=== PATIENT | female | born 1995 | race Caucasian/White ===

== ENCOUNTER 2016-07-02 20:16 | Emergency (ER) | payer MEDICAID ==
[2016-07-02 21:23] VITALS: BP 121/71
== END 2016-07-03 01:15 | disposition left against medical advice (07) ==
LOC: ER 20:16
DX: Z53.21 Procedure and treatment not carried out due to patient leaving prior to being seen by health care provider (principal)

== ENCOUNTER 2016-07-07 17:16 | Emergency (ER) | payer MEDICAID ==
--- NOTE | 2016-07-07 17:41 | ER Document Report ---
ED Medical Screen (RME) - General Chief Complaint: Abdominal Pain Stated Complaint: ABDOMINAL PAIN,BACK PAIN Time seen by provider: 17:39 Mode of Arrival: Ambulatory Information source: Patient Notes: 21-year-old again with twins complaining of upper uterine pain since today at 10:00. No vaginal bleeding. c/0 of nausea. Yellow vaginal discharge after urination. No urinary symptoms. known Rh-. TRAVEL OUTSIDE OF THE [place] IN LAST 30 DAYS: No - Related Data Allergies/Adverse Reactions: doxycycline [Doxycycline] Allergy (Verified 06/06/15 14:42) Penicillins Allergy (Verified 06/06/15 14:42) Past Medical History Pulmonary Medical History: Reports: Hx Asthma Neurological Medical History: Reports: Hx Migraine Musculoskeltal Medical History: Reports Hx Musculoskeletal Trauma - Toxic Psychiatric Medical History: Reports: Hx Anxiety, Hx Depression - Immunizations Immunizations up to date: Yes Hx Diphtheria, Pertussis, Tetanus Vaccination: Yes Physical Exam - Vital signs Vitals: Temp Pulse Resp BP Pulse Ox 97.9 F 102 H 20 122/64 99 07/07/16 17:34 07/07/16 17:34 07/07/16 17:34 07/07/16 17:34 07/07/16 17:34 Course - Vital Signs Vital signs: Temp Pulse Resp BP Pulse Ox 97.9 F 102 H 20 122/64 99 07/07/16 17:34 07/07/16 17:34 07/07/16 17:34 07/07/16 17:34 07/07/16 17:34
[2016-07-07 19:00] LABS: ABSOLUTE EOSINOPHILS # (AUTO) 0.1 10^3/uL (0.0-0.6); ABSOLUTE LYMPHOCYTES (AUTO) 2.3 10^3/uL (0.5-4.7); ABSOLUTE MONOCYTES (AUTO) 0.6 10^3/uL (0.1-1.4); BASOPHILS % (AUTO) 0.1 % (0-2); HEMATOCRIT 33.8 % (36.0-47.0); HGB HCT DIFFERENCE 2.2; MEAN CORPUSCULAR HEMOGLOBIN 30.5 pg (27.0-33.4); MEAN CORPUSCULAR HGB CONC 35.5 g/dL (32.0-36.0); MEAN CORPUSCULAR VOLUME 86 fl (80-97); MONOCYTES % (AUTO) 7.5 % (3-13); RED BLOOD COUNT 3.93 10^6/uL (3.72-5.28); RED CELL DISTRIBUTION WIDTH 13.1 % (11.5-14.0); SEGMENTED NEUTROPHILS % (AUTO) 62.4 % (42-78)
[2016-07-07 19:17] LABS: AMORPHOUS SEDIMENT,URINE TRACE /HPF; APPEARANCE,URINE SLIGHTLY-CLOUDY; BILIRUBIN,URINE NEGATIVE (NEGATIVE); GLUCOSE, URINE NEGATIVE (NEGATIVE); KETONES,URINE NEGATIVE (NEGATIVE); LEUKOCYTE ESTERASE,URINE NEGATIVE (NEGATIVE); NITRITE,URINE NEGATIVE (NEGATIVE); PROTEIN,URINE NEGATIVE (NEGATIVE); UROBILINOGEN,URINE NEGATIVE mg/dL (<2.0)
[2016-07-07 19:27] LABS: ALANINE AMINOTRANSFERASE 30 U/L (9-52); ALBUMIN 3.6 g/dL (3.5-5.0); ALKALINE PHOSPHATASE 61 U/L (38-126); ANION GAP 12 (5-19); ASPARTATE AMINO TRANSFERASE 20 U/L (14-36); BILIRUBIN,TOTAL 0.4 mg/dL (0.2-1.3); BLOOD UREA NITROGEN 6 mg/dL (7-20); CALCIUM 9.2 mg/dL (8.4-10.2); CARBON DIOXIDE 23 mmol/L (22-30); CHLORIDE 104 mmol/L (98-107); CREATININE RESULT 0.47 mg/dL (0.52-1.25); GLUCOSE 82 mg/dL (75-110); LIPASE 34.5 U/L (23-300); POTASSIUM 3.9 mmol/L (3.6-5.0); SODIUM 139.3 mmol/L (137-145); TOTAL PROTEIN 6.6 g/dL (6.3-8.2)
--- NOTE | 2016-07-07 21:02 | ER Document Report ---
ED GI/ - General Mode of Arrival: Ambulatory Information source: Patient TRAVEL OUTSIDE OF THE [place] IN LAST 30 DAYS: No - HPI Patient complains to provider of: Abdominal pain Onset: This morning Context: Sexual history: Active Associated symptoms: Other - see above <JEANETH MCCLELLAN - Last Filed: 07/07/16 20:57> <WILLIAM PRITCHARD - Last Filed: 07/07/16 21:37> - General Chief Complaint: Abdominal Pain Stated Complaint: ABDOMINAL PAIN,BACK PAIN Notes: 21 year old female (12 weeks; high risk with fraternal twins) presents to the ED complaining of tightening abdominal pain that began this morning at 10 :00. [facility] all findings were normal. Patient called her OB complaining of having "contractions" every 4 minutes and stating that the pain radiated to her left flank and was told to come to the ED. Patient describes the "contractions" as if her abdomen was becoming "rock hard" and then relaxing. Patient claims these "contractions" were present from 10:00 to 14:00. Patient denies diarrhea, burning with urination, vaginal bleeding, or vaginal pain. Patient states she last had intercourse 3 nights ago. (JEANETH MCCLELLAN) - Related Data Allergies/Adverse Reactions: doxycycline [Doxycycline] Allergy (Verified 06/06/15 14:42) Penicillins Allergy (Verified 06/06/15 14:42) Past Medical History - General Information source: Patient - Social History Smoking Status: Unknown if Ever Smoked Family History: Reviewed & Not Pertinent Patient has suicidal ideation: No Patient has homicidal ideation: No Pulmonary Medical History: Reports: Hx Asthma Neurological Medical History: Reports: Hx Migraine Musculoskeltal Medical History: Reports Hx Musculoskeletal Trauma - Toxic Psychiatric Medical History: Reports: Hx Anxiety, Hx Depression Surgical Hx: Negative - Immunizations Immunizations up to date: Yes Hx Diphtheria, Pertussis, Tetanus Vaccination: Yes <JEANETH MCCLELLAN - Last Filed: 07/07/16 20:57> Review of Systems - Review of Systems Constitutional: No symptoms reported EENT: No symptoms reported Cardiovascular: No symptoms reported Respiratory: No symptoms reported Gastrointestinal: See HPI, Abdominal pain. denies: Diarrhea Genitourinary: No symptoms reported, Flank pain - left flank. denies: Burning Female Genitourinary: See HPI, - 12 weeks. denies: Vaginal bleeding, Painful intercourse Musculoskeletal: No symptoms reported Skin: No symptoms reported Hematologic/Lymphatic: No symptoms reported Neurological/Psychological: No symptoms reported -: Yes All other systems reviewed and negative <JEANETH MCCLELLNA - Last Filed: 07/07/16 20:57> Physical Exam - Vital signs Interpretation: Normal - General General appearance: Alert In distress: None - HEENT Head: Normocephalic, Atraumatic Eyes: Normal Extraocular movements intact: Yes Pupils: PERRL - Respiratory Respiratory status: No respiratory distress Breath sounds: Normal - Cardiovascular Rhythm: Regular Heart sounds: Normal auscultation - Abdominal Inspection: Normal Distension: No distension Bowel sounds: Normal Tenderness: Nontender - Back Back: Normal, Nontender - Extremities General upper extremity: Normal inspection, Normal ROM General lower extremity: Normal inspection, Normal ROM - Neurological Neuro grossly intact: Yes Cognition: Normal Orientation: AAOx4 Agenda Coma Scale Eye Opening: Spontaneous Agenda Coma Scale Verbal: Oriented Casper Coma Scale Motor: Obeys Commands Casper Coma Scale Total: 15 Speech: Normal - Psychological Associated symptoms: Normal affect, Normal mood - Skin Skin Temperature: Warm Skin Moisture: Dry Skin Color: Normal <JEANETH MCCLELLAN - Last Filed: 07/07/16 20:57> <WILLIAM PRITCHARD - Last Filed: 07/07/16 21:37> - Vital signs Vitals: Temp Pulse Resp BP Pulse Ox 97.9 F 102 H 20 122/64 99 07/07/16 17:34 07/07/16 17:34 07/07/16 17:34 07/07/16 17:34 07/07/16 17:34 (JEANETH MCCLELLAN) (WILLIAM PRITCHARD) Course - Laboratory Result Diagrams: 07/07/16 18:44 07/07/16 18:44 <JEANETH MCCLELLAN - Last Filed: 07/07/16 20:57> - Laboratory Result Diagrams: 07/07/16 18:44 07/07/16 18:44 <WILLIAM PRITCHARD - Last Filed: 07/07/16 21:37> - Re-evaluation Re-evalutation: 07/07/16 21:33 I personally performed the services described in the documentation, reviewed and edited the documentation which was dictated to my scribe in my presence, and it accurately records my words and actions. Patient is 12 weeks with twins reports what she felt were contractions prior to arrival. This is her second history of previous miscarriage no history of labor or full-term delivery of children. Has a high school drafting teacher/GYN physician in [place] called them told them she felt like she was having a tightening contractions and they told her to go to the emergency department. Initially seen and evaluated out in [facility] ultrasound ordered initially went to see the patient was in the ultrasound machine which came back much time I evaluated her she denied any pain cramping eating pelvic pain or discharge. She denies any history of trauma. She has abdominal pain flank pain urinary symptoms syncope near syncope chest pain or shortness of breath. Urinalysis is negative for infection she is well-appearing nontoxic in no acute distress blood pressure is stable she is afebrile show abdominal examinations no guarding rebound or rigidity ultrasound shows intrauterine twin approximately 12 weeks with no associated abnormality. She discharged home plenty of fluids rest follow-up with [facility] physician one day and discussed reasons for ED return sooner (WILLIAM PRITCHARD) - Vital Signs Vital signs: Temp Pulse Resp BP Pulse Ox 97.9 F 102 H 18 122/64 99 07/07/16 17:34 07/07/16 17:34 07/07/16 18:35 07/07/16 17:34 07/07/16 17:34 (JEANETH MCCLELLAN) (WILLIAM PRITCHARD) - Laboratory Laboratory results interpreted by ga: 07/07/16 07/07/16 18:44 18:44 Hct 33.8 L BUN 6 L Creatinine 0.47 L Beta HCG, Quant 10917.00 H (JEANETH MCCLELLAN) (WILLIAM PRITCHARD) Discharge <JEANETH MCCLELLAN - Last Filed: 07/07/16 20:57> <WILLIAM PRITCHARD - Last Filed: 07/07/16 21:37> - Discharge Clinical Impression: abdominal pain in Condition: Stable Disposition: HOME, SELF-CARE Instructions: Abdominal Pain ([facility]) Additional Instructions: Abdominal Pain in There are many causes of abdominal pain. Pain can mean a serious problem requiring surgery (such as appendicitis). It can also be an innocent problem that goes away on its own (such as a viral infection). Often, time must pass to determine the cause of pain. The physician does not feel that hospitalization is necessary, at present. Things may change within the next 24 hours. Call the doctor or come back for re- examination if any problems occur, such as: (1) Pain that becomes more severe, steady, or becomes concentrated in one specific area. Also, pain that is more severe with movement or coughing. (2) Vomiting that persists or becomes more frequent. (3) Blood in the vomitus, urine, or bowel movements. Blood in the stool may have a tarry or black appearance. (4) Shaking chills or fever greater than 100 degrees F. (5) The abdomen becomes more distended or swollen. (6) Bowel movements cease. (7) Failure to improve as expected. Follow-up with your [facility] physician tomorrow return for increasing worsening or new symptoms Referrals: SANDRA KIM MD [Primary Care Provider] - Follow up tomorrow Scribe Documentation - Scribe Written by Compa:: Compa Gomez, 07/07/2016 21:11 acting as scribe for :: Javier <JEANETH MCCLELLAN - Last Filed: 07/07/16 20:57>
[2016-07-07 22:27] VITALS: BP 111/65
== END 2016-07-07 22:10 | disposition home or self-care (01) ==
LOC: ER 17:16
DX: O26.91 Pregnancy related conditions, unspecified, first trimester (principal); R10.9 Unspecified abdominal pain; M54.9 Dorsalgia, unspecified; O30.001 Twin pregnancy, unspecified number of placenta and unspecified number of amniotic sacs, first trimester; Z88.0 Allergy status to penicillin
CPT/HCPCS: 36415; 76801; 76802; 80053; 81001; 83690; 84702; 85025; 87086; 87088; 87186; 99284

== ENCOUNTER 2016-08-03 12:55 | Emergency (ER) | payer MEDICAID ==
--- NOTE | 2016-08-03 13:30 | ER Document Report ---
Addendum entered and electronically signed by IRINA MORELOS NP 08/03/16 13:38 : Course - Re-evaluation Re-evalutation: 08/03/16 13:[address] Rivera who agrees with plan for ultrasound imaging - Vital Signs Vital signs: Temp Pulse Resp BP Pulse Ox 97.9 F 114 H 16 110/63 98 08/03/16 13:30 08/03/16 13:30 08/03/16 13:30 08/03/16 13:30 08/03/16 13:30 Original Note: ED Medical Screen (RME) - General Stated Complaint: ABDOMINAL PAIN Mode of Arrival: Ambulatory Information source: Patient Notes: Patient complains of lower pelvic pressure. Patient does report urinary frequency. Patient is currently 17 weeks with twin gestation patient is . Patient does report some vaginal discharge but no vaginal bleeding. No movement since last night. Patient was treated for UTI 07/15/2016. Patient does complain of low back pain as well. hx: Asthma, psoriasis I have greeted and performed a rapid initial assessment of this patient. A comprehensive ED assessment and evaluation of the patient, analysis of test results and completion of the medical decision making process will be conducted by additional ED providers. TRAVEL OUTSIDE OF THE [place] IN LAST 30 DAYS: No - Related Data Allergies/Adverse Reactions: doxycycline [Doxycycline] Allergy (Verified 06/06/15 14:42) Penicillins Allergy (Verified 06/06/15 14:42) Past Medical History Pulmonary Medical History: Reports: Hx Asthma Neurological Medical History: Reports: Hx Migraine Musculoskeltal Medical History: Reports Hx Musculoskeletal Trauma - Toxic Psychiatric Medical History: Reports: Hx Anxiety, Hx Depression - Immunizations Immunizations up to date: Yes Hx Diphtheria, Pertussis, Tetanus Vaccination: Yes Physical Exam - Abdominal Tenderness: Tender - Lower pelvic
[2016-08-03 14:16] LABS: ABSOLUTE EOSINOPHILS # (AUTO) 0.1 10^3/uL (0.0-0.6); ABSOLUTE LYMPHOCYTES (AUTO) 2.3 10^3/uL (0.5-4.7); ABSOLUTE MONOCYTES (AUTO) 0.7 10^3/uL (0.1-1.4); ABSOLUTE NEUT (AUTO) 7.6 10^3/uL (1.7-8.2); BASOPHILS % (AUTO) 0.1 % (0-2); EOSINOPHILS % (AUTO) 1.2 % (0-6); HEMATOCRIT 34.4 % (36.0-47.0); HEMOGLOBIN 11.7 g/dL (12.0-15.5); HGB HCT DIFFERENCE 0.7; LYMPHOCYTES % (AUTO) 21.4 % (13-45); MEAN CORPUSCULAR HGB CONC 34.1 g/dL (32.0-36.0); MEAN CORPUSCULAR VOLUME 88 fl (80-97); MONOCYTES % (AUTO) 6.5 % (3-13); RED BLOOD COUNT 3.91 10^6/uL (3.72-5.28); RED CELL DISTRIBUTION WIDTH 13.7 % (11.5-14.0); SEGMENTED NEUTROPHILS % (AUTO) 70.8 % (42-78); WHITE BLOOD COUNT 10.8 10^3/uL (4.0-10.5)
[2016-08-03] MEDS ORDERED: CEFTRIAXONE RTU 1 GM/D5W 50 ML IV ONE (14:28)
[2016-08-03 14:30] LABS: AMORPHOUS SEDIMENT,URINE 1+ /HPF; APPEARANCE,URINE TURBID; BILIRUBIN,URINE NEGATIVE (NEGATIVE); GLUCOSE, URINE 50 mg/dL (NEGATIVE); KETONES,URINE NEGATIVE (NEGATIVE); LEUKOCYTE ESTERASE,URINE NEGATIVE (NEGATIVE); NITRITE,URINE NEGATIVE (NEGATIVE); PROTEIN,URINE 30 mg/dL (NEGATIVE); URINE SPECIFIC GRAVITY 1.023
[2016-08-03 14:33] LABS: ALANINE AMINOTRANSFERASE 28 U/L (9-52); ALBUMIN 3.4 g/dL (3.5-5.0); ALKALINE PHOSPHATASE 72 U/L (38-126); ANION GAP 10 (5-19); ASPARTATE AMINO TRANSFERASE 17 U/L (14-36); BILIRUBIN,TOTAL 0.5 mg/dL (0.2-1.3); BLOOD UREA NITROGEN 7 mg/dL (7-20); CALCIUM 9.5 mg/dL (8.4-10.2); CARBON DIOXIDE 24 mmol/L (22-30); CHLORIDE 104 mmol/L (98-107); CREATININE RESULT 0.53 mg/dL (0.52-1.25); GLUCOSE 136 mg/dL (75-110); TOTAL PROTEIN 6.7 g/dL (6.3-8.2)
--- NOTE | 2016-08-03 14:35 | ER Document Report ---
ED GI/ - General Chief Complaint: Lower Abdominal Pain Stated Complaint: ABDOMINAL PAIN Mode of Arrival: Ambulatory Information source: Patient Notes: 21-year-old female who is 17 weeks with twin gestation who is a presents today with some persistent lower abdominal "burning sensation when I urinate". Patient was here around July 07 and had a urinary tract infection with a culture showing Klebsiella pneumonia. She was initially started on Macrobid but this was changed secondary to culture results. She states she was placed on Bactrim but stopped the medication after 2 days secondary to "rash". She denies any vaginal bleeding, vomiting, fevers, and currently denies any pain. She states it is intermittent, worse with urination. I had a long discussion with the patient regarding or allergy to penicillins. Patient states when she was little she got bit by ants and they treated the and bite with penicillin and this caused the rash to get worse. She denies any need for epinephrine. She then states around 3 years ago she was diagnosed with strep throat and was started on amoxicillin. She again denies any need for epinephrine and states that this turn into scarlet fever. TRAVEL OUTSIDE OF THE [place] IN LAST 30 DAYS: No - HPI Patient complains to provider of: Other - See above Onset: Other - See above Timing/Duration: Gradual Quality of pain: Pressure Severity at maximum: Moderate Severity in ED: None Pain Level: Denies Location: Suprapubic Vaginal bleeding (Compared to normal period): None - Related Data Allergies/Adverse Reactions: doxycycline [Doxycycline] Allergy (Verified 08/03/16 13:31) Penicillins Allergy (Verified 08/03/16 13:31) Past Medical History - General Information source: Patient - Social History Smoking Status: Current Some Day Smoker Cigarette use (# per day): No Chew tobacco use (# tins/day): No Smoking Education Provided: No Frequency of alcohol use: None Drug Abuse: None Family History: Reviewed & Not Pertinent Patient has suicidal ideation: No Patient has homicidal ideation: No Pulmonary Medical History: Reports: Hx Asthma Neurological Medical History: Reports: Hx Migraine Renal/ Medical History: Denies: Hx Peritoneal Dialysis Musculoskeltal Medical History: Reports Hx Musculoskeletal Trauma - Toxic Psychiatric Medical History: Reports: Hx Anxiety, Hx Depression - Immunizations Immunizations up to date: Yes Hx Diphtheria, Pertussis, Tetanus Vaccination: Yes Review of Systems - Review of Systems Constitutional: denies: Fever EENT: denies: Eye discharge, Nose discharge Cardiovascular: denies: Chest pain, Palpitations Respiratory: denies: Short of breath Gastrointestinal: denies: Vomiting Genitourinary: Burning, Dysuria, Frequency, Flank pain Musculoskeletal: denies: Leg swelling Skin: Other - no hives. denies: Rash Neurological/Psychological: Other - no slurred speech -: Yes All other systems reviewed and negative Physical Exam - Vital signs Vitals: Temp Pulse Resp BP Pulse Ox 97.9 F 114 H 16 110/63 98 08/03/16 13:30 08/03/16 13:30 08/03/16 13:30 08/03/16 13:30 08/03/16 13:30 Notes: Reviewed vital signs and nursing note as charted by RN. CONSTITUTIONAL: Alert and oriented and responds appropriately to questions. Well -appearing; well-nourished HEAD: Normocephalic; atraumatic CARD: Regular rate and rhythm; no murmurs, no clicks, no rubs, no gallops; symmetric distal pulses RESP: Normal chest excursion without splinting or tachypnea; breath sounds clear and equal bilaterally; no wheezes, no rhonchi, no rales ABD/GI: Normal bowel sounds; soft, no tenderness to deep palpation in all 4 quadrants of the abdomen, no rebound, no guarding; consistent with dates BACK: The back appears normal and is non-tender to palpation, there is no CVA tenderness EXT: Normal ROM in all joints; non-tender to palpation; no cyanosis, no effusions, no edema SKIN: Normal color for age and race; warm; dry; good turgor; capillary refill < 2 seconds; no acute lesions noted NEURO: Moves all extremities equally; Motor and sensory function intact PSYCH: The patient's mood and manner are appropriate. Grooming and personal hygiene are appropriate. Course - Re-evaluation Re-evalutation: 08/03/16 14:32 Given the culture results from the urinary tract infection showing indeterminate resistance to Macrobid, I understand why they changed the antibiotics. Given the rash secondary to Bactrim, the patient's status , the uncertain allergy to penicillins, I will give the patient is shot of Rocephin on the monitor. The patient has no adverse reaction, we will start the patient on a cephalosporin given the patient's previous sensitivities. 08/03/16 15:41 Labs as recorded. Urine culture has been sent. Possibly partially treated urinary tract infection. Patient denies any pain currently. No current trouble with antibiotics. 08/03/16 17:33 Labs and urinalysis and ultrasound as recorded. Urine culture has been sent. Patient had no reaction to the Rocephin. We will provide Omnicef with strict return precautions and follow-up with the [facility]. 08/03/16 17:39 Patient still denies any pain. No vomiting. Patient has had no fevers. Heart rate is now 86. Blood pressure is stable. Patient does have some look is in the urine with a blood glucose of 136. Urine culture has been sent. I have called and spoken directly to Dr. Kahn of [facility]. She states that would like the patient to follow-up in [facility] clinic on Thursday. Patient is pleased with this decision. - Vital Signs Vital signs: Temp Pulse Resp BP Pulse Ox 97.9 F 114 H 16 110/63 98 08/03/16 13:30 08/03/16 13:30 08/03/16 13:30 08/03/16 13:30 08/03/16 13:30 - Laboratory Result Diagrams: 08/03/16 13:50 08/03/16 13:50 Laboratory results interpreted by me: 08/03/16 08/03/16 08/03/16 13:50 13:50 13:50 WBC 10.8 H Hgb 11.7 L Hct 34.4 L Glucose 136 H Albumin 3.4 L Urine Protein 30 H Urine Glucose (UA) 50 H Urine Urobilinogen 4.0 H Discharge - Discharge Clinical Impression: Pelvic pain UTI (urinary tract infection) Qualifiers: Urinary tract infection type: acute cystitis Condition: Good Disposition: HOME, SELF-CARE Additional Instructions: Come back immediately with any return of abdominal pain or cramping, back pain or cramping, any change in location or quality of pain, fevers or vomiting, or any other acute problems. Please make sure that you follow-up with your [facility] on Thursday as we have helped expedite for you by calling on Thursday. Prescriptions: Cefdinir [Omnicef 300 mg Capsule] 1 cap PO BID #20 capsule Referrals: ARLENE CORNELIUS, [Primary Care Provider] - Follow up as needed
[2016-08-03] MEDS ORDERED: NORMAL SALINE 1000 ML 1,000 ML IV ONE (17:52)
[2016-08-03 20:09] VITALS: BP 101/60
== END 2016-08-03 19:50 | disposition home or self-care (01) ==
LOC: ER 12:55
DX: O23.12 Infections of bladder in pregnancy, second trimester (principal); N30.00 Acute cystitis without hematuria; R10.2 Pelvic and perineal pain; O30.002 Twin pregnancy, unspecified number of placenta and unspecified number of amniotic sacs, second trimester; O99.332 Smoking (tobacco) complicating pregnancy, second trimester; Z3A.17 17 weeks gestation of pregnancy; Z88.0 Allergy status to penicillin
CPT/HCPCS: 99284; 96365; 36415; 87086; 85025; 80053; 81001; 76805; 76810; J7030; J0696

== ENCOUNTER 2016-09-01 16:01 | Outpatient (CLI) | payer MEDICAID ==
[2016-09-01 16:47] LABS: AMNISURE (ROM) NEGATIVE (NEGATIVE)
[2016-09-01 16:48] LABS: APPEARANCE,URINE CLEAR; BILIRUBIN,URINE NEGATIVE (NEGATIVE); GLUCOSE, URINE 150 mg/dL (NEGATIVE); KETONES,URINE NEGATIVE (NEGATIVE); LEUKOCYTE ESTERASE,URINE NEGATIVE (NEGATIVE); NITRITE,URINE NEGATIVE (NEGATIVE); PROTEIN,URINE NEGATIVE (NEGATIVE); URINE SPECIFIC GRAVITY 1.006; UROBILINOGEN,URINE NEGATIVE mg/dL (<2.0)
[2016-09-01 17:10] LABS: URINE BARBITURATES SCREEN NEGATIVE; URINE METHADONE SCREEN NEGATIVE; URINE OPIATES LOW NEGATIVE; URINE PHENCYCLIDINE SCREEN NEGATIVE
== END 2016-09-01 17:53 | disposition home or self-care (01) ==
LOC: LC 16:01
PROVIDERS: ATTEND Student in an Organized Health Care Education/Training Program
PROC: 4A1HXCZ Monitoring of Products of Conception, Cardiac Rate, External Approach (ICD-10-PCS; principal; 2016-09-01)
DX: Z36 Encounter for antenatal screening of mother (principal)
CPT/HCPCS: 59899; 84112; 81001; 80307; Q0114

== ENCOUNTER 2016-10-22 12:35 | Outpatient (CLI) | payer MEDICAID ==
[2016-10-22 13:26] LABS: APPEARANCE,URINE SLIGHTLY-CLOUDY; BILIRUBIN,URINE NEGATIVE (NEGATIVE); GLUCOSE, URINE NEGATIVE (NEGATIVE); KETONES,URINE TRACE mg/dL (NEGATIVE); LEUKOCYTE ESTERASE,URINE TRACE (NEGATIVE); NITRITE,URINE NEGATIVE (NEGATIVE); PROTEIN,URINE NEGATIVE (NEGATIVE); URINE SPECIFIC GRAVITY 1.011; UROBILINOGEN,URINE NEGATIVE mg/dL (<2.0)
[2016-10-22 13:45] LABS: URINE BARBITURATES SCREEN NEGATIVE; URINE METHADONE SCREEN NEGATIVE; URINE OPIATES LOW NEGATIVE; URINE PHENCYCLIDINE SCREEN NEGATIVE
== END 2016-10-22 14:15 | disposition home or self-care (01) ==
LOC: LC 12:35
PROVIDERS: ATTEND Obstetrics & Gynecology
PROC: 4A1HXCZ Monitoring of Products of Conception, Cardiac Rate, External Approach (ICD-10-PCS; principal; 2016-10-22)
DX: Z34.92 Encounter for supervision of normal pregnancy, unspecified, second trimester (principal); Z36 Encounter for antenatal screening of mother; Z3A.27 27 weeks gestation of pregnancy
CPT/HCPCS: 80307; 81001

== ENCOUNTER 2016-10-25 22:14 | Outpatient (CLI) | payer MEDICAID ==
[2016-10-25 22:57] LABS: AMORPHOUS SEDIMENT,URINE TRACE /HPF; APPEARANCE,URINE SLIGHTLY-CLOUDY; BILIRUBIN,URINE NEGATIVE (NEGATIVE); GLUCOSE, URINE NEGATIVE (NEGATIVE); KETONES,URINE NEGATIVE (NEGATIVE); LEUKOCYTE ESTERASE,URINE TRACE (NEGATIVE); NITRITE,URINE NEGATIVE (NEGATIVE); PROTEIN,URINE NEGATIVE (NEGATIVE); URINE SPECIFIC GRAVITY 1.004; UROBILINOGEN,URINE NEGATIVE mg/dL (<2.0)
[2016-10-25 23:19] LABS: URINE BARBITURATES SCREEN NEGATIVE; URINE METHADONE SCREEN NEGATIVE; URINE OPIATES LOW NEGATIVE; URINE PHENCYCLIDINE SCREEN NEGATIVE
[2016-10-25] MEDS ORDERED: ACETAMINOPHEN 325 MG TABLET ONE (23:41)
[2016-10-25] MEDS ORDERED: ACETAMINOPHEN 325 MG TABLET PO ONE (23:46)
[2016-10-26 00:19] LABS: AMNISURE (ROM) NEGATIVE (NEGATIVE)
== END 2016-10-26 00:41 | disposition home or self-care (01) ==
LOC: LC 22:14
PROVIDERS: ATTEND Specialist
PROC: 4A1HXCZ Monitoring of Products of Conception, Cardiac Rate, External Approach (ICD-10-PCS; principal; 2016-10-25)
DX: Z34.93 Encounter for supervision of normal pregnancy, unspecified, third trimester (principal); Z36 Encounter for antenatal screening of mother; Z3A.28 28 weeks gestation of pregnancy
CPT/HCPCS: 59899; 84112; 81001; 80307; J3490

== ENCOUNTER 2016-11-11 17:20 | Outpatient (CLI) | payer MEDICAID ==
[2016-11-11 18:49] LABS: APPEARANCE,URINE CLOUDY; BILIRUBIN,URINE NEGATIVE (NEGATIVE); CALCIUM OXALATE CRYSTALS,URINE MANY /HPF; GLUCOSE, URINE NEGATIVE (NEGATIVE); KETONES,URINE NEGATIVE (NEGATIVE); LEUKOCYTE ESTERASE,URINE LARGE (NEGATIVE); NITRITE,URINE NEGATIVE (NEGATIVE); PROTEIN,URINE 30 mg/dL (NEGATIVE); URINE SPECIFIC GRAVITY 1.019; UROBILINOGEN,URINE NEGATIVE mg/dL (<2.0)
[2016-11-11 19:04] LABS: URINE BARBITURATES SCREEN NEGATIVE; URINE METHADONE SCREEN NEGATIVE; URINE OPIATES LOW NEGATIVE; URINE PHENCYCLIDINE SCREEN NEGATIVE
--- NOTE | 2016-11-11 20:03 | Non Stress Test Report ---
Non Stress Test Datetime Report Generated by CPN: 11/11/2016 20:03 DEMOGRAPHIC Test Number: 1 EGA NST: 30.4 INDICATION Indication for Study: Ordered by Provider VITAL SIGNS Temperature - NST: 98.0 Pulse - NST: 92 RESP - NST: 14 NBPSYS NST: 122 NBPDIA NST: 71 MONITORING Monitor Explained: Monitor Explained; Test Explained; Patient Verbalized Understanding Time on Monitor: 11/11/2016 17:37 Time off Monitor: 11/11/2016 19:42 NST Duration: 125 NST INTERVENTIONS NST Interventions: PO Hydration; IV Fluids Physician Notified NST: P Dasilva CNM BABY A: [id number] BABY A Movement : Present Contraction Frequency : irritability FHR Baseline : 135 Accelerations : 15X15 Decelerations : None Variability : Moderate 6-25bpm NST Review: Meets Criteria for Reactive NST NST Review and Verified By : Dione Otero RN NST Results: Reactive BABY B Movement: Present FHR Baseline: 140 Accelerations: 15X15 Decelerations: None Variability: Moderate 6-25bpm NST Review: Meets Criteria for Reactive NST NST Reviewed And Verified By: Dione Otero, RN NST Results: Reactive NST REPORT Report Trigger: Send Report
== END 2016-11-11 20:00 | disposition home or self-care (01) ==
LOC: LC 17:20
PROVIDERS: ATTEND Obstetrics & Gynecology
PROC: 4A1HXCZ Monitoring of Products of Conception, Cardiac Rate, External Approach (ICD-10-PCS; principal; 2016-11-11)
DX: O30.003 Twin pregnancy, unspecified number of placenta and unspecified number of amniotic sacs, third trimester (principal); Z3A.30 30 weeks gestation of pregnancy
CPT/HCPCS: 59025; 80307; 81001

== ENCOUNTER 2016-11-14 23:12 | Outpatient (CLI) | payer MEDICAID ==
[2016-11-14 23:39] LABS: APPEARANCE,URINE SLIGHTLY-CLOUDY; BILIRUBIN,URINE NEGATIVE (NEGATIVE); GLUCOSE, URINE NEGATIVE (NEGATIVE); KETONES,URINE TRACE mg/dL (NEGATIVE); LEUKOCYTE ESTERASE,URINE TRACE (NEGATIVE); NITRITE,URINE NEGATIVE (NEGATIVE); PROTEIN,URINE NEGATIVE (NEGATIVE); UROBILINOGEN,URINE NEGATIVE mg/dL (<2.0)
[2016-11-14 23:58] LABS: URINE BARBITURATES SCREEN NEGATIVE; URINE METHADONE SCREEN NEGATIVE; URINE OPIATES LOW NEGATIVE; URINE PHENCYCLIDINE SCREEN NEGATIVE
--- NOTE | 2016-12-05 04:11 | Non Stress Test Report ---
Non Stress Test Datetime Report Generated by CPN: 12/05/2016 04:11 DEMOGRAPHIC EGA NST: 34.0 INDICATION Indication for Study: Other Indication for Study (NST) Other: LC URINE RESULTS Urine Protein, NST: Negative Urine Ketones - NST: Negative Urine Glucose - NST: Negative Urine Blood - NST: Negative MONITORING Monitor Explained: Monitor Explained; Test Explained; Patient Verbalized Understanding; Other Time on Monitor: 12/05/2016 02:01 Time off Monitor: 12/05/2016 03:56 NST Duration: 115 NST INTERVENTIONS NST Interventions: IV Fluids; Other NST Interventions Other: Terbutaline 0.25 mg SQ BABY A: [id number] BABY A Movement : Present Contraction Frequency : 0 FHR Baseline : 120 Accelerations : 15X15 Decelerations : Variable Variability : Moderate 6-25bpm NST Review: Meets Criteria for Reactive NST NST Review and Verified By : K Brianda RN NST Results: Reactive BABY B Movement: Present FHR Baseline: 125 Accelerations: 15X15 Decelerations: None Variability: Moderate 6-25bpm NST Results: Reactive NST REPORT Report Trigger: Send Report
== END 2016-11-15 00:35 | disposition home or self-care (01) ==
LOC: LC 23:12
PROVIDERS: ATTEND Obstetrics & Gynecology
PROC: 4A1HXCZ Monitoring of Products of Conception, Cardiac Rate, External Approach (ICD-10-PCS; principal; 2016-11-14)
DX: O47.03 False labor before 37 completed weeks of gestation, third trimester (principal); Z3A.31 31 weeks gestation of pregnancy
CPT/HCPCS: 80307; 81001

== ENCOUNTER 2016-11-23 14:36 | Emergency (ER) | payer MEDICAID ==
[2016-11-23 14:45] VITALS: BP 144/84
--- NOTE | 2016-11-23 15:10 | ER Document Report ---
ED Oral Problem - General Chief Complaint: Toothache Stated Complaint: TOOTH PAIN Time Seen by Provider: 11/23/16 14:55 Mode of Arrival: Ambulatory Information source: Patient Notes: Female presents to ED for complaint of dental pain to the #19. She is 32 weeks with twins and states that no benefits will touch her at this time. TRAVEL OUTSIDE OF THE [place] IN LAST 30 DAYS: No - HPI Patient complains to provider of: Toothache Onset: Last week Onset: Gradual Quality of pain: Pressure, Throbbing Severity: Severe Pain Level: 5 Associated symptoms: Toothache Worsened by: Cold Similar symptoms previously: Yes Recently seen / treated by doctor/dentist: Yes Past Medical History - General Information source: Patient - Social History Smoking Status: Never Smoker Cigarette use (# per day): No Chew tobacco use (# tins/day): No Smoking Education Provided: No Frequency of alcohol use: None Drug Abuse: None Lives with: Family Family History: Reviewed & Not Pertinent - Past Medical History Cardiac Medical History: Reports: None Pulmonary Medical History: Reports: None EENT Medical History: Reports: None Neurological Medical History: Reports: None Endocrine Medical History: Reports: None Renal/ Medical History: Reports: None Malignancy Medical History: Reports: None GI Medical History: Reports: None Musculoskeltal Medical History: Reports None Skin Medical History: Reports None Psychiatric Medical History: Reports: None Traumatic Medical History: Reports: None Infectious Medical History: Reports: None Surgical Hx: Negative Past Surgical History: Reports: None Review of Systems - Review of Systems Constitutional: No symptoms reported EENT: Dental problem Cardiovascular: No symptoms reported Respiratory: No symptoms reported Gastrointestinal: No symptoms reported Genitourinary: No symptoms reported Female Genitourinary: No symptoms reported Musculoskeletal: No symptoms reported Skin: No symptoms reported Hematologic/Lymphatic: No symptoms reported Neurological/Psychological: No symptoms reported Physical Exam - Vital signs Vitals: Temp Pulse Resp BP Pulse Ox 98 F 91 16 144/84 H 99 11/23/16 14:43 11/23/16 14:43 11/23/16 14:43 11/23/16 14:43 11/23/16 14:43 Interpretation: Normal - General General appearance: Appears well, Alert - HEENT Head: Normocephalic, Atraumatic Eyes: Normal Pupils: PERRL Ears: Normal External canal: Normal Tympanic membrane: Normal Sinus: Normal Nasal: Normal, Other Mouth/Lips: Caries Mucous membranes: Normal Teeth diagram: 1 - Swollen gums surrounding the tooth #19 with a cavity noted on the tooth. Very tender to touch. - Respiratory Respiratory status: No respiratory distress Chest status: Nontender Breath sounds: Normal Chest palpation: Normal - Cardiovascular Rhythm: Regular Heart sounds: Normal auscultation Murmur: No - Abdominal Inspection: Gravid female Distension: No distension Bowel sounds: Normal Tenderness: Nontender Organomegaly: No organomegaly - Back Back: Normal, Nontender - Extremities General upper extremity: Normal inspection, Nontender, Normal color, Normal ROM , Normal temperature General lower extremity: Normal inspection, Nontender, Normal color, Normal ROM , Normal temperature, Normal weight bearing. No: Joe's sign - Neurological Neuro grossly intact: Yes Cognition: Normal Orientation: AAOx4 [place] Coma Scale Eye Opening: Spontaneous [place] Coma Scale Verbal: Oriented [place] Coma Scale Motor: Obeys Commands [place] Coma Scale Total: 15 Speech: Normal Motor strength normal: LUE, RUE, LLE, RLE Sensory: Normal - Psychological Associated symptoms: Normal affect, Normal mood - Skin Skin Temperature: Warm Skin Moisture: Dry Skin Color: Normal Course - Re-evaluation Re-evalutation: 11/23/16 17:05 Dr. [facility] concerning this young lady's pain with her toothache. He stated it was okay to give her Percocet even though she was 32 weeks . - Vital Signs Vital signs: Temp Pulse Resp BP Pulse Ox 98 F 91 16 144/84 H 99 11/23/16 14:43 11/23/16 14:43 11/23/16 14:43 11/23/16 14:43 11/23/16 14:43 Discharge - Discharge Clinical Impression: Pain due to dental caries Condition: Stable Disposition: HOME, SELF-CARE Additional Instructions: TOOTHACHE: Your pain is due to dental decay. The tooth must be repaired in order for you to feel better. You will, therefore, be referred to a dentist. We do not have dentists on the staff at [facility]. Severe swelling or drainage around a tooth usually means a dental abscess. This also requires evaluation and treatment by the dentist, but antibiotics may be prescribed while awaiting dental treatment. You should be rechecked immediately if you develop major swelling of the face, increasing pain, a lump in the jaw or gums, headache, difficulty swallowing, or fever. ORAL NARCOTIC MEDICATION: You have been given a prescription for pain control. This medication is a narcotic. It's best taken with food, as nausea can result if taken on an empty stomach. Don't operate machinery or drive within six hours of taking this medication. Do not combine this medicine with alcohol, or with any medication which can cause sedation (such as cold tablets or sleeping pills) unless you get permission from the physician. Narcotics tend to cause constipation. If possible, drink plenty of fluids and eat a diet high in fiber and fruits. Please be aware that prescription narcotics also have the potential for abuse. People become addicted to these medications because of the general sense of wellbeing that they induce. This feeling along with a significant reduction in tension, anxiety, and aggression provides a stimulating seductive quality to these drugs. Once your pain is under control, we encourage you to discard your unused narcotics. CLINDAMYCIN: You have been given a prescription for the antibiotic clindamycin. It is often prescribed for infections in the mouth, such as dental infections or abscesses, and for skin infections due to MRSA. It's important that you take all the medication, unless instructed otherwise by your physician. Failure to complete the entire course can result in relapse of your condition. Common side effects of antibiotics include nausea, intestinal cramping, or diarrhea. Women may develop vaginal yeast infections, and babies can get yeast (thrush) in the mouth following the use of antibiotics. Contact your physician if you develop significant side effects from this medication. Allergy to this antibiotic can result in hives, wheezing, faintness, or itching. If symptoms of allergy occur, stop the medication and call the doctor. FOLLOW-UP CARE: You have been referred for follow-up care to the dentists listed below. Call the dentists office for an appointment as you were instructed or within the next two days. If you experience worsening or a significant change in your symptoms, notify the physician immediately or return to the Emergency Department at any time for re-evaluation. [facility] [address] Ritesh mornings, by appointment [facility] [address] [place] [address] [facility] [place] [address] [facility] [address] [facility] [address] [facility] [email or web address] [address] [place] [address] Thursday- 8:00am to 5:00 pm Will see patients from other [facility]. Charges based on income and family size and accepts Medicare, Medicaid, and Insurances Will pull molars [facility] Student [facility] [address] Hours of Operation 8:00 am - 4:30 pm weekdays The following dental offices accept Medicaid: [facility] Dr. Gaston Dr. Alba Dr. [place] Dr. Austin Kristofer Wevaer Lutsavage, and Ethel oral surgery Dr. Shah ([place]) Dr. He ([place]) [facility] Drs. Baron and Efrain ([facility]) Dr. Velasco ([facility]) [facility] Dr. Matt ([place]) Drs. Adkins and ([place]) Medicaid Care Line Prescriptions: Clindamycin HCl [Cleocin HCl] 150 mg PO Q6 7 Days Oxycodone HCl/Acetaminophen [Percocet 5-325 mg Tablet] 1 tab PO TIDP PRN #15 tab PRN Reason: Forms: Elevated Blood Pressure
== END 2016-11-23 15:15 | disposition home or self-care (01) ==
LOC: ER 14:36 → MERGE 14:36 → ER 15:15
DX: O30.003 Twin pregnancy, unspecified number of placenta and unspecified number of amniotic sacs, third trimester (principal); K02.9 Dental caries, unspecified; K08.89 Other specified disorders of teeth and supporting structures; Z3A.32 32 weeks gestation of pregnancy
CPT/HCPCS: 99282

== ENCOUNTER → 2016-12-01 | Outpatient (CLI) | payer MEDICAID ==
[2016-12-01 11:37] LABS: HEMATOCRIT 31.6 % (36.0-47.0); HEMOGLOBIN 10.4 g/dL (12.0-15.5); HGB HCT DIFFERENCE -0.4; MEAN CORPUSCULAR HEMOGLOBIN 27.7 pg (27.0-33.4); MEAN CORPUSCULAR HGB CONC 32.9 g/dL (32.0-36.0); MEAN CORPUSCULAR VOLUME 84 fl (80-97); RED BLOOD COUNT 3.75 10^6/uL (3.72-5.28); RED CELL DISTRIBUTION WIDTH 14.7 % (11.5-14.0); WHITE BLOOD COUNT 12.6 10^3/uL (4.0-10.5)
[2016-12-01 11:56] LABS: ASPARTATE AMINO TRANSFERASE 72 U/L (14-36); CREATININE RESULT 0.52 mg/dL (0.52-1.25); LDH 473 U/L (313-618); URIC ACID 5.1 mg/dL (2.5-6.2)
[2016-12-01 12:01] LABS: URINE CREATININE 71.5 mg/dL (16-327); URINE PROTEIN 16.9 mg/dL (<12)
== END ==
LOC: OD 11:10 → MERGE 11:10
PROVIDERS: ATTEND Registered Nurse Women's Health Care, Ambulatory
DX: O30.009 Twin pregnancy, unspecified number of placenta and unspecified number of amniotic sacs, unspecified trimester (principal); O99.89 Other specified diseases and conditions complicating pregnancy, childbirth and the puerperium; H53.9 Unspecified visual disturbance; R51 Headache; Z3A.00 Weeks of gestation of pregnancy not specified
CPT/HCPCS: 36415; 82565; 82570; 83615; 84156; 84450; 84550; 85027

== ENCOUNTER 2016-12-05 01:38 | Outpatient (CLI) | payer MEDICAID ==
[2016-12-05 02:41] LABS: APPEARANCE,URINE SLIGHTLY HAZY; BILIRUBIN,URINE NEGATIVE (NEGATIVE); GLUCOSE, URINE NEGATIVE (NEGATIVE); KETONES,URINE NEGATIVE (NEGATIVE); URINE SPECIFIC GRAVITY 1.007
[2016-12-05 02:42] LABS: BACTERIA,URINE TRACE /HPF; LEUKOCYTE ESTERASE,URINE SMALL (NEGATIVE); NITRITE,URINE NEGATIVE (NEGATIVE); PROTEIN,URINE NEGATIVE (NEGATIVE); RBC,URINE 0-1 /HPF; UROBILINOGEN,URINE NEGATIVE mg/dL (<2.0)
[2016-12-05 02:54] LABS: URINE BARBITURATES SCREEN NEGATIVE; URINE METHADONE SCREEN NEGATIVE; URINE OPIATES LOW NEGATIVE; URINE PHENCYCLIDINE SCREEN NEGATIVE
[2016-12-05] MEDS ORDERED: RINGERS SOLUTION,LACTATED 1,000 ML IV PRN (03:02)
[2016-12-05] MEDS ORDERED: TERBUTALINE SULFATE INJ/PF 1 MG/1 ML SDV ONE (03:07)
[2016-12-05] MEDS ORDERED: TERBUTALINE SULFATE INJ/PF 1 MG/1 ML SDV SUBCUT ONE (04:00)
== END 2016-12-05 04:06 | disposition home or self-care (01) ==
LOC: LC 01:38 → MERGE 01:38 → LC 04:06
PROVIDERS: ATTEND Obstetrics & Gynecology
PROC: 4A1HXCZ Monitoring of Products of Conception, Cardiac Rate, External Approach (ICD-10-PCS; principal; 2016-12-05)
DX: O47.03 False labor before 37 completed weeks of gestation, third trimester (principal); O76 Abnormality in fetal heart rate and rhythm complicating labor and delivery; O30.003 Twin pregnancy, unspecified number of placenta and unspecified number of amniotic sacs, third trimester; Z3A.34 34 weeks gestation of pregnancy
CPT/HCPCS: 59025; 81001; 80307; J3105

== ENCOUNTER 2016-12-05 16:30 | Outpatient (CLI) | payer MEDICAID ==
[2016-12-05 17:10] LABS: APPEARANCE,URINE SLIGHTLY-CLOUDY; BILIRUBIN,URINE NEGATIVE (NEGATIVE); GLUCOSE, URINE NEGATIVE (NEGATIVE); KETONES,URINE NEGATIVE (NEGATIVE); LEUKOCYTE ESTERASE,URINE MODERATE (NEGATIVE); NITRITE,URINE NEGATIVE (NEGATIVE); PROTEIN,URINE NEGATIVE (NEGATIVE); URINE SPECIFIC GRAVITY 1.005; UROBILINOGEN,URINE NEGATIVE mg/dL (<2.0)
[2016-12-05 17:23] LABS: URINE BARBITURATES SCREEN NEGATIVE; URINE METHADONE SCREEN NEGATIVE; URINE OPIATES LOW NEGATIVE; URINE PHENCYCLIDINE SCREEN NEGATIVE
[2016-12-05] MEDS ORDERED: HYDROXYZINE PAMOATE 50 MG CAPSULE ONE (17:38)
--- NOTE | 2016-12-05 18:45 | Non Stress Test Report ---
Non Stress Test Datetime Report Generated by CPN: 12/05/2016 18:44 DEMOGRAPHIC EGA NST: 34.0 INDICATION Indication for Study: Ordered by Provider MONITORING Monitor Explained: Monitor Explained Time on Monitor: 12/05/2016 17:07 Time off Monitor: 12/05/2016 18:02 NST Duration: 55 NST INTERVENTIONS NST Interventions: PO Hydration Physician Notified NST: DR BRANDT BABY A Movement : Present Contraction Frequency : NONE FHR Baseline : 155 Accelerations : 15X15 Decelerations : None Variability : Moderate 6-25bpm NST Review: Meets Criteria for Reactive NST NST Review and Verified By : D Bellavance RNC NST Results: Reactive BABY B Movement: Present FHR Baseline: 145 Accelerations: 15X15 Decelerations: None Variability: Moderate 6-25bpm NST Review: Meets Criteria for Reactive NST NST Reviewed And Verified By: Miki Horne RNC NST Results: Reactive NST REPORT Report Trigger: Send Report
== END 2016-12-05 18:48 | disposition home or self-care (01) ==
LOC: LC 16:30
PROVIDERS: ATTEND Obstetrics & Gynecology
PROC: 4A1HXCZ Monitoring of Products of Conception, Cardiac Rate, External Approach (ICD-10-PCS; principal; 2016-12-05)
DX: O47.03 False labor before 37 completed weeks of gestation, third trimester (principal); O76 Abnormality in fetal heart rate and rhythm complicating labor and delivery; O30.003 Twin pregnancy, unspecified number of placenta and unspecified number of amniotic sacs, third trimester; Z3A.34 34 weeks gestation of pregnancy
CPT/HCPCS: 59025; 81001; 80307; J3490

== ENCOUNTER 2016-12-18 15:02 | Outpatient (CLI) | payer MEDICAID ==
[2016-12-18 16:03] LABS: AMNISURE (ROM) NEGATIVE (NEGATIVE)
[2016-12-18 16:07] LABS: APPEARANCE,URINE CLOUDY; BILIRUBIN,URINE NEGATIVE (NEGATIVE); GLUCOSE, URINE NEGATIVE (NEGATIVE); KETONES,URINE NEGATIVE (NEGATIVE); LEUKOCYTE ESTERASE,URINE TRACE (NEGATIVE); NITRITE,URINE NEGATIVE (NEGATIVE); PROTEIN,URINE NEGATIVE (NEGATIVE); URINE SPECIFIC GRAVITY 1.015; UROBILINOGEN,URINE NEGATIVE mg/dL (<2.0)
[2016-12-18 16:23] LABS: URINE BARBITURATES SCREEN NEGATIVE; URINE METHADONE SCREEN NEGATIVE; URINE OPIATES LOW NEGATIVE; URINE PHENCYCLIDINE SCREEN NEGATIVE
== END 2016-12-18 16:16 | disposition home or self-care (01) ==
LOC: LC 15:02
PROVIDERS: ATTEND Obstetrics & Gynecology
PROC: 4A1HXCZ Monitoring of Products of Conception, Cardiac Rate, External Approach (ICD-10-PCS; principal; 2016-12-18)
DX: Z34.93 Encounter for supervision of normal pregnancy, unspecified, third trimester (principal); Z3A.35 35 weeks gestation of pregnancy
CPT/HCPCS: 59025; 80307; 81001; 84112

== ENCOUNTER 2016-12-25 08:25 | Inpatient (IN) | payer MEDICAID ==
--- NOTE | 2016-12-25 08:34 | Non Stress Test Report ---
Non Stress Test Datetime Report Generated by CPN: 12/25/2016 08:33 DEMOGRAPHIC EGA NST: 35.6 INDICATION Indication for Study: Ordered by Provider MONITORING Monitor Explained: Monitor Explained; Test Explained; Patient Verbalized Understanding Time on Monitor: 12/18/2016 15:29 Time off Monitor: 12/18/2016 16:09 NST Duration: 40 NST INTERVENTIONS NST Interventions: None Physician Notified NST: P. Dasilva, CNM BABY A: [id number] BABY A Movement : Present Contraction Frequency : none FHR Baseline : 140 Accelerations : 15X15 Decelerations : None Variability : Moderate 6-25bpm NST Review: Meets Criteria for Reactive NST NST Review and Verified By : BG SOSA, RN NST Results: Reactive BABY B Movement: Present FHR Baseline: 145 Accelerations: 15X15 Decelerations: None Variability: Moderate 6-25bpm NST Review: Meets Criteria for Reactive NST NST Reviewed And Verified By: BL ROULUND, RN NST Results: Reactive NST REPORT Report Trigger: Send Report
[2016-12-25 09:31] LABS: ABSOLUTE EOSINOPHILS # (AUTO) 0.1 10^3/uL (0.0-0.6); ABSOLUTE LYMPHOCYTES (AUTO) 2.6 10^3/uL (0.5-4.7); ABSOLUTE MONOCYTES (AUTO) 0.6 10^3/uL (0.1-1.4); ABSOLUTE NEUT (AUTO) 6.2 10^3/uL (1.7-8.2); BASOPHILS % (AUTO) 0.2 % (0-2); EOSINOPHILS % (AUTO) 0.7 % (0-6); HEMATOCRIT 30.1 % (36.0-47.0); HEMOGLOBIN 9.9 g/dL (12.0-15.5); HGB HCT DIFFERENCE -0.4; LYMPHOCYTES % (AUTO) 27.4 % (13-45); MEAN CORPUSCULAR HEMOGLOBIN 26.8 pg (27.0-33.4); MEAN CORPUSCULAR HGB CONC 32.8 g/dL (32.0-36.0); MEAN CORPUSCULAR VOLUME 82 fl (80-97); MONOCYTES % (AUTO) 6.5 % (3-13); RED BLOOD COUNT 3.68 10^6/uL (3.72-5.28); RED CELL DISTRIBUTION WIDTH 16.6 % (11.5-14.0); SEGMENTED NEUTROPHILS % (AUTO) 65.2 % (42-78); WHITE BLOOD COUNT 9.5 10^3/uL (4.0-10.5)
[2016-12-25 10:00] LABS: APPEARANCE,URINE CLOUDY; BILIRUBIN,URINE MODERATE (NEGATIVE); GLUCOSE, URINE NEGATIVE (NEGATIVE); KETONES,URINE TRACE mg/dL (NEGATIVE); LEUKOCYTE ESTERASE,URINE LARGE (NEGATIVE); NITRITE,URINE NEGATIVE (NEGATIVE); PROTEIN,URINE 30 mg/dL (NEGATIVE); URINE SPECIFIC GRAVITY 1.029
[2016-12-25 10:35] LABS: URINE BARBITURATES SCREEN NEGATIVE; URINE METHADONE SCREEN NEGATIVE; URINE OPIATES LOW NEGATIVE; URINE PHENCYCLIDINE SCREEN NEGATIVE
[2016-12-25] MEDS ORDERED: VANCOMYCIN HCL INJ 1000 MG VIAL IV SCH (13:00)
[2016-12-25] MEDS ORDERED: VANCOMYCIN HCL INJ 1000 MG VIAL ONE (13:31)
[2016-12-25] MEDS ORDERED: OXYTOCIN/NORMAL SALINE 1,000 ML IV PRN ×2 (13:50→23:01)
[2016-12-25] MEDS ORDERED: RINGERS SOLUTION,LACTATED 300 ML IV ONE (13:50)
[2016-12-25] MEDS ORDERED: OXYTOCIN/NORMAL SALINE 20 UNIT/1,000 ML RTUINJ ONE ×2 (13:59→16:56)
[2016-12-25] MEDS ORDERED: FENTANYL CITRATE INJ/PF 100 MCG/2 ML AMPUL ONE (14:21)
[2016-12-25] MEDS ORDERED: PHENYLEPHRINE HCL INJ/PF 10 MG/1 ML SDV ONE (14:22)
[2016-12-25] MEDS ORDERED: EPHEDRINE SULFATE INJ 50 MG/1 ML AMPULE ONE (14:22)
[2016-12-25] MEDS ORDERED: FENTANYL/BUPIVACAINE/NS/PF 200 MCG/100 ML RTUINJ EPI ONE (14:22)
[2016-12-25] MEDS ORDERED: BUPIVACAINE HCL 0.25 % INJ/PF (2.5 MG/1 ML) 30 ML VIAL ONE (14:23)
--- NOTE | 2016-12-25 15:31 | L&D Progress Notes ---
PROGRESS NOTES Datetime Report Generated by CPN: 12/25/2016 15:30 PROGRESS NOTE Impression: Normal Progression of Labor Procedures: Artificial ROM; Sterile Vag Exam Plan: Continue Present Management; Induction Informed Consent Obtained: Vaginal Delivery; Induction of Labor; Risks, Benefits and Alternatives Discussed Vital Signs : Reviewed; Within Normal Limits Comment: AROM of baby A after confirmation of presentation. Vertex/trans. Reviewed with pt that baby B is larger than baby A and if Baby B in distress or breech would recommend a c/s if unable to convert presentation. Pitocin initiated and Vanc given. Cvx 480/-2. Pelvis adequate for ANIVAL. Pelvis unproven. Reassuring FWB x 2. Anticpate VAGINAL EXAM Dilatation: 4 Dilatation: 4 Effacement: 80 Effacement: 80 Station: -2 Station: -1 Contractions: irregular MEMBRANES Pooling: Negative Membranes: Ruptured Membranes: Intact Amniotic Fluid Color: Clear FETUS A FHR - Baseline: 120 Monitoring: External US Variability: Moderate 6-25bpm Accelerations: 15X15 Decelerations: None FHR Category: Category I Presentation: Vertex (Annotations: Data stored by CPN on behalf of user) FETUS B FHR - Baseline: 125 Monitoring: External US Accelerations: 15X15 Decelerations: None FHR Category: Category I Presentation: Transverse SIGNATURE SIGNATURE: [id number];[id number] SIGNATURE: [id number] SIGNATURE: [id number] SIGNATURE: [id number] SIGNATURE: [id number] Signature: with User ID: [email or web address]
[2016-12-25] MEDS ORDERED: MISOPROSTOL 0.2 MG TABLET ONE (16:56)
[2016-12-25] MEDS ORDERED: LIDOCAINE 1% INJ-PF (10 MG/ML) 30 ML SDV ONE (16:56)
[2016-12-25] MEDS: RINGERS SOLUTION,LACTATED 1,000 ML IV PRN ×2 (17:06→20:53)
--- NOTE | 2016-12-25 18:00 | L&D Progress Notes ---
PROGRESS NOTES Datetime Report Generated by CPN: 12/25/2016 17:59 PROGRESS NOTE Impression: Normal Progression of Labor Procedures: Sterile Vag Exam Plan: Continue Present Management; Induction Informed Consent Obtained: Vaginal Delivery; Risks, Benefits and Alternatives Discussed Vital Signs : Reviewed; Within Normal Limits Comment: pt reports that she is feeling more pressure. Cvx 7/80/0. She is doing well. regular ctx. Anticipate . pelvis adequate for ANIVAL. VAGINAL EXAM Dilatation: 7 Effacement: 80 Station: 0 MEMBRANES Membranes: Ruptured Amniotic Fluid Color: Clear FETUS A FHR - Baseline: 120 Monitoring: External US Variability: Moderate 6-25bpm Accelerations: 15X15 Decelerations: None FHR Category: Category I FETUS B FHR - Baseline: 130 Monitoring: External US Variability: Moderate 6-25bpm Accelerations: 15X15 Decelerations: None FHR Category: Category I Presentation: Transverse FETUS C SIGNATURE: [id number];[id number] Signature: with User ID: [email or web address]
[2016-12-25] MEDS ORDERED: NA PHOS,M-B/NA PHOS,DI-BA (ADULT) 133 ML ENEMA PR PRN (23:01)
[2016-12-25] MEDS ORDERED: PROMETHAZINE HCL 25 MG TABLET PO PRN (23:01)
[2016-12-25] MEDS ORDERED: ACETAMINOPHEN 650 MG SUPP.RECT PR PRN (23:01)
[2016-12-25] MEDS ORDERED: GLYCERIN/WITCH HAZEL LEAF 1 EACH MED..PAD TP PRN (23:01)
[2016-12-25] MEDS ORDERED: BENZOCAINE/MENTHOL AEROSOL SPRAY 56 ML TOP PRN (23:01)
[2016-12-25] MEDS ORDERED: ZOLPIDEM TARTRATE 5 MG TABLET PO PRN (23:01)
[2016-12-25] MEDS ORDERED: ACETAMINOPHEN WITH CODEINE #3 TABLET PO PRN ×2 (23:01)
[2016-12-25] MEDS ORDERED: PROMETHAZINE HCL INJ 25 MG/1 ML VIAL IV PRN (23:01)
[2016-12-25] MEDS ORDERED: DIPH/PERTUSS(ACELL)/TETANUS VAC/PF 0.5 ML SYR (>=10YO) IM PRN (23:01)
[2016-12-25] MEDS ORDERED: DIBUCAINE 1% OINTMENT 28 GM TP PRN (23:01)
[2016-12-25] MEDS ORDERED: MAGNESIUM HYDROXIDE SUSP 30 ML UDCUP PO PRN (23:01)
[2016-12-25] MEDS ORDERED: PSEUDOEPHEDRINE HCL 30 MG TABLET PO PRN (23:01)
[2016-12-25] MEDS ORDERED: DIPHENHYDRAMINE HCL 25 MG CAPSULE PO PRN (23:01)
[2016-12-25] MEDS ORDERED: PROMETHAZINE HCL 25 MG SUPP.RECT PR PRN (23:01)
[2016-12-25] MEDS ORDERED: ACETAMINOPHEN 325 MG TABLET PO PRN (23:01)
[2016-12-25] MEDS ORDERED: MEASLES,MUMPS&RUBELLA VACC/PF 0.5 ML VIAL SUBCUT PRN (23:01)
[2016-12-26] MEDS ORDERED: VANCOMYCIN HCL INJ 1000 MG VIAL ONE (01:13)
[2016-12-26] MEDS ORDERED: VANCOMYCIN HCL INJ 1000 MG VIAL IV ONE (01:45)
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
[2016-12-26] MEDS: IBUPROFEN 800 MG TABLET PO SCH ×3 (06:16→21:27)
[2016-12-26 07:22] LABS: HEMATOCRIT 27.6 % (36.0-47.0); HEMOGLOBIN 8.9 g/dL (12.0-15.5); HGB HCT DIFFERENCE -0.9; MEAN CORPUSCULAR HEMOGLOBIN 26.2 pg (27.0-33.4); MEAN CORPUSCULAR HGB CONC 32.4 g/dL (32.0-36.0); MEAN CORPUSCULAR VOLUME 81 fl (80-97); RED BLOOD COUNT 3.42 10^6/uL (3.72-5.28); RED CELL DISTRIBUTION WIDTH 16.7 % (11.5-14.0); WHITE BLOOD COUNT 18.8 10^3/uL (4.0-10.5)
--- NOTE | 2016-12-26 09:29 | PDOC PROGRESS REPORT ---
Subjective-OB Subjective: Post Delivery Day: 1 21 year old. Denies any needs at this time, states lochia is stable, pain well controlled, voiding without difficulty, passing gas. Physical Exam (OB) Vital Signs: Temp Pulse Resp BP Pulse Ox 97.9 F 79 16 116/75 99 12/26/16 09:00 12/26/16 09:00 12/26/16 09:00 12/26/16 09:00 12/26/16 09:00 Intake & Output 12/25/16 12/26/16 12/27/16 06:59 06:59 06:59 Weight 88 kg - Lochia Lochia Amount: Scant < 10 ml Lochia Color: Rubra/Red - Abdomen Description: Tender, Soft Hernia Present: No Fundal Description: Firm, Midline Fundal Height: u/u - u/2 Objective-Diagnostic Laboratory: 12/26/16 07:03 12/25/16 12/25/16 12/25/16 08:30 09:17 09:17 WBC 9.5 RBC 3.68 L Hgb 9.9 L Hct 30.1 L MCV 82 MCH 26.8 L MCHC 32.8 RDW 16.6 H Plt Count 452 H Seg Neutrophils % 65.2 Lymphocytes % 27.4 Monocytes % 6.5 Eosinophils % 0.7 Basophils % 0.2 Absolute Neutrophils 6.2 Absolute Lymphocytes 2.6 Absolute Monocytes 0.6 Absolute Eosinophils 0.1 Absolute Basophils 0.0 Urine Color JACQUELYN Urine Appearance CLOUDY Urine pH 6.0 Ur Specific [place] 1.029 Urine Protein 30 H Urine Glucose (UA) NEGATIVE Urine Ketones TRACE H Urine Blood NEGATIVE Urine Nitrite NEGATIVE Ur Leukocyte Esterase LARGE H Blood Type A NEGATIVE Antibody Screen NEGATIVE 12/26/16 12/26/16 07:03 07:03 WBC 18.8 H RBC 3.42 L Hgb 8.9 L Hct 27.6 L MCV 81 MCH 26.2 L MCHC 32.4 RDW 16.7 H Plt Count 384 Seg Neutrophils % Lymphocytes % Monocytes % Eosinophils % Basophils % Absolute Neutrophils Absolute Lymphocytes Absolute Monocytes Absolute Eosinophils Absolute Basophils Urine Color Urine Appearance Urine pH Ur Specific [place] Urine Protein Urine Glucose (UA) Urine Ketones Urine Blood Urine Nitrite Ur Leukocyte Esterase Blood Type A NEGATIVE Antibody Screen Assessment and Plan(PN) - Assessment and Plan (1) Vaginal delivery Is this a current diagnosis for this admission?: YesPlan: routine post care (2) Acute blood loss anemia Is this a current diagnosis for this admission?: YesPlan: ferrous sulfate increase dietary iron - Time Spent with Patient Time with patient: Less than 15 minutes Critical Time spent with patient: Less than 15 minutes Medications reviewed and adjusted accordingly: Yes - Disposition Anticipated Discharge: Home Within: within 48 hours
[2016-12-26] MEDS: FERROUS SULFATE 325 MG TABLET PO SCH ×2 (10:26→17:36)
[2016-12-26] MEDS: SENNOSIDES/DOCUSATE 8.6-50 MG 1 EACH TABLET PO SCH (10:28)
[2016-12-26] MEDS: FAMOTIDINE 20 MG TABLET PO SCH ×2 (10:28→21:26)
[2016-12-26] MEDS: DOCUSATE SODIUM 100 MG CAPSULE PO SCH ×2 (10:29→17:35)
[2016-12-26] MEDS: PRENATAL VITAMIN W-O CA NO5/FE FUMARATE/FA CAPSULE PO SCH (10:29)
--- NOTE | 2016-12-26 17:41 | Delivery Summary ---
Del Sum A-C Datetime Report Generated by [facility]: 12/26/2016 17:40 DELIVERY PERSONNEL DELIVERY PERSONNEL: [id number];[id number];[id number] DELIVERY PERSONNEL: [id number];[id number] DELIVERY PERSONNEL: [id number] DELIVERY PERSONNEL: [id number] DELIVERY PERSONNEL: [id number] DELIVERY PERSONNEL: [id number] DELIVERY PERSONNEL: [id number] Delivery Doctor:: Margarita Hodges MD Labor and Delivery Nurse:: Shona Burton RN Neonatal Nurse Practitioner:: AVA Smith Nursery Nurse:: Tatiana Ojeda RN MSN Nursery Nurse:: Shell Frank RN Slice Plug Cutter Operator Helper/PLANIMETER OPERATOR: ST Serene Slice Plug Cutter Operator Helper/PLANIMETER OPERATOR: Oriana Shields CST Additional Personnel: : Lupe Cervantes CNA MATERNAL INFORMATION Delivery Anesthesia: Local; Epidural Medications After Delivery: Pitocin Drip 20 Units/1000ml NSS Estimated Blood Loss (ml): 400 Maternal Complications: None Provider Comments: Pt taken to the OR for delivery of TIUP vertex/ transverse presentation when c/c/+2. Pt was counseled previously (earlier in day and by CHERYL and other provider in office) regarding presentation and risks for vaginal delivery of TIUP versus section and the possible scenarios and complications that could arise including distress and head entrapment and complications/morbidity that could arise. Baby A VFI delivered in SANTO presentation. No nuchal cord. shoulders and body delivered without difficulty. Baby A delivered 2213. Apgars 8/9. After delivery of baby A - position of baby B evaluated and noted to be breech but Amniotic sac intact and position attempted to rotate with internal podalic version. After partial rotation of head to maternal left however SROM occured. At SROM baby B's feet and legs immediately entered the vagina and delivered. at 2220. THighs delivered at 2221 then body and left arm easily delivered. Right arm was fully extended and rotated across posterior head and was unable to be delivered until delivery reached shoulders at 2223. head delivered at 2224. Baby B Apgars 4/8. Placenta x 2 delivered spontaneously intact at 2227 and pitocin started. Cytotec given for uterine tone 1000mcg AK. labial/vaginal lacerations repaired in the usual fashion with good hemostasis. Baby x 2 to Nursery staff. FF at U. Good hemostasis and uterine tone. Weights pending at provider leaving the room. LABOR SUMMARY EDC: 01/16/2017 00:00 No. Babies in Womb: 2 Attempted: No Labor Anesthesia: Epidural LABOR INFORMATION Reason for Induction: Other Reason for Induction- Other: Unstable mood with Bipolar Disorder Onset of Labor: 12/25/2016 15:07 Complete Dilatation: 12/26/2016 21:23 Oxytocin: Induction Group B Beta Strep: positive Antibiotics # of Doses: 1 Antibiotics Time of Last Dose: 1321 Name of Antibiotic Given: Vancomycin 1 gm Steroids Given: None Reason Steroids Not Administered: Not Applicable MEMBRANES Membranes Rupture Method: Artificial Rupture of Membranes: 12/25/2016 15:07 Length of Rupture (hr): 7.12 Amniotic Fluid Color: Clear Amniotic Fluid Amount: Moderate Amniotic Fluid Odor: Normal STAGES OF LABOR Stage 1 hr: 30 Stage 1 min: 16 Stage 2 hr: -23 Stage 2 min: -9 Stage 3 hr: 0 Stage 3 min: 13 Total Time in Labor hr: 7 Total Time in Labor min: 20 VAGINAL DELIVERY Episiotomy: None Laceration Extension: First Degree Laceration Type: Vaginal Laceration Repair: Yes Laceration Repair Note: Bilateral labial lacerations repaired in usual fashion. Good hemostasis. Sponge Count Correct: N/A Sharps Count Correct: Yes CSECTION DELIVERY Primary Indication: N/A CSection Incidence: N/A Elective: N/A CSection Incision: N/A BABY A INFORMATION Infant Delivery Date/Time: 12/25/2016 22:14 Method of Delivery: Vaginal Born in Route : No : N/A Forceps: N/A Vacuum Extraction: N/A Shoulder Dystocia : No PRESENTATION/POSITION BABY A Presentation: Cephalic Presentation: Cephalic Cephalic Presentation: Vertex Vertex Position: OA PLACENTA INFORMATION BABY A Placenta Delivery Time : 12/25/2016 22:27 Placenta Method of Delivery: Spontaneous Placenta Status: Delivered SCORES BABY A Heart Rate 1 min: >100 bpm Resp Effort 1 min: Good Cry Reflex Irritability 1 min: Cough or Sneeze or Pulls Away Muscle Tone 1 min: Active Motion Color 1 min: Blue/Pale Resuscitation Effort 1 min: Tactile Stimulation SCORE 1 MIN: 8 Heart Rate 5 min: >100 bpm Resp Effort 5 min: Good Cry Reflex Irritability 5 min: Cough or Sneeze or Pulls Away Muscle Tone 5 min: Active Motion Color 5 min: Body [employer], Extremities Blue Resuscitation Effort 5 min: N/A SCORE 5 MIN: 9 INFORMATION BABY A Gestational Age at Delivery: 36.6 Gestational Status: Late - 34- 36.6 Weeks Infant Outcome : Liveborn Infant Condition : Stable Infant Sex: Female IDENTIFICATION BABY A Verification Date/Time: 12/25/2016 22:37 ID Band Number: [id number] Mother's Name Verified: Yes Infant RN Verifying Infant: Jorge Rossi BAN Additional Verifying Personnel: Ginna CervantesKAROLINA slater WEIGHT/LENGTH BABY A Birthweight (gm): 2685 Weight (lb): 5 Weight (oz): 15 Length (in): 18.50 Length (cm): 46.99 CORD INFORMATION BABY A No. Cord Vessels: 3 Nuchal Cord : N/A Cord Blood Taken: Yes-For Eval (Mom's Blood Type - or O+) Suction: Mouth; Nose ASSESSMENT BABY A Complications: None Physical Findings at Delivery: Within Normal Limits Infant Respirations: Appears Normal Skin to Skin: No Infant Care By: nursery RNs Transferred To: Nursery BABY B INFORMATION Infant Delivery Date/Time: 12/25/2016 22:24 Method of Delivery : Vaginal Born in Route : No : N/A Forceps : N/A Vacuum Extraction: N/A Shoulder Dystocia : No SHOULDER DYSTOCIA BABY B Delivery Date/Time: 12/25/2016 22:24 PRESENTATION/POSITION BABY B Presentation : Breech Cephalic Position : N/A Breech Position: Double Footling ROM/PLACENTA INFO BABY B Rupture of Membranes: 12/25/2016 22:16 Length of Rupture (hr): 0.13 Placenta Delivery Time : 12/25/2016 22:27 Placenta Method of Delivery: Spontaneous Placental Status : Delivered SCORES BABY B Heart Rate 1 min: >100 bpm Resp Effort 1 min: Slow, Irregular Reflex Irritability 1 min: Grimace Muscle Tone 1 min: Flaccid Color 1 min: Blue/Pale Resuscitation Effort 1 min: Tactile Stimulation; Oxygen; PPV/NCPAP SCORE 1 MIN: 4 Heart Rate 5 min: >100 bpm Resp Effort 5 min: Good Cry Reflex Irritability 5 min: Cough or Sneeze or Pulls Away Muscle Tone 5 min: Some Flexion of Extremities Color 5 min: Body [employer], Extremities Blue Resuscitation Effort 5 min: N/A SCORE 5 MIN: 8 INFORMATION BABY B Gestational Age at Delivery: 36.6 Gestational Status : Late - 34- 36.6 Weeks Outcome : Liveborn Condition : Stable Sex : Female IDENTIFICATION BABY B Verification Date/Time: 12/25/2016 22:38 ID Band Number : [id number] Mother's Name Verified: Yes Infant RN Verifying Infant: Jorge Rossi RN Additional Verifying Personnel: Ginna Cervantes CNA WEIGHT/LENGTH BABY B Birthweight (gm): 2595 Infant Weight (lb) : 5 Weight (oz): 12 Infant Length (in): 19.00 Length (cm): 48.26 CORD INFORMATION BABY B No. Cord Vessels : 3 Nuchal Cord : N/A Cord Blood Taken : Yes-For Eval (Mom's Blood Type -) Infant Suction : Mouth; Nose; Pharynx ASSESSMENT BABY B Infant Complications- Other: footling breech delivery Physical Findings- Other : see nursery for findings Skin to Skin: No Care By : nursery RNs Transfer To: Nursery SIGNATURES Signature: with User ID: [email or web address]
[2016-12-27] MEDS: IBUPROFEN 800 MG TABLET PO SCH ×3 (05:53→22:15)
--- NOTE | 2016-12-27 08:47 | PDOC PROGRESS REPORT ---
Subjective-OB Subjective: Post Delivery Day: 2 21 year old. Denies any needs at this time, states lochia is stable, voiding without difficulty, pain well controlled, ready for dc home, but psych has not seen pt, states mood is stable. Physical Exam (OB) Vital Signs: Temp Pulse Resp BP Pulse Ox 97.7 F 65 17 121/79 100 12/27/16 07:30 12/27/16 07:30 12/27/16 07:30 12/27/16 07:30 12/27/16 07:30 Intake & Output 12/26/16 12/27/16 12/28/16 06:59 06:59 06:59 Intake Total 450 Balance 450 Weight 88 kg - Lochia Lochia Amount: Scant < 10 ml Lochia Color: Rubra/Red - Abdomen Description: Soft, Round Hernia Present: No Fundal Description: Firm, Midline Fundal Height: u/u - u/2 Objective-Diagnostic Laboratory: 12/26/16 07:03 Assessment and Plan(PN) - Assessment and Plan (1) Vaginal delivery Is this a current diagnosis for this admission?: YesPlan: routine pp care d/c pending psych seeing pt may cancel if psych advises (2) Acute blood loss anemia Is this a current diagnosis for this admission?: YesPlan: ferrous sulfate increase dietary iron (3) Bipolar 1 disorder Is this a current diagnosis for this admission?: YesPlan: awaiting psych eval for meds and d/c plan - Time Spent with Patient Time with patient: Less than 15 minutes Critical Time spent with patient: Less than 15 minutes Medications reviewed and adjusted accordingly: Yes - Disposition Anticipated Discharge: Home Within: within 24 hours
--- NOTE | 2016-12-27 08:54 | PDOC DISCHARGE SUMMARY ---
Final Diagnosis Discharge Date: 12/27/16 - Final Diagnosis (1) Vaginal delivery Is this a current diagnosis for this admission?: Yes (2) Acute blood loss anemia Is this a current diagnosis for this admission?: Yes (3) Bipolar 1 disorder Is this a current diagnosis for this admission?: Yes Discharge Data - Discharge Medication Home Medications: Vit/Iron Fumarate/FA [ Tablet] 1 tab PO DAILY 12/05/16 Albuterol Sulfate [Ventolin Hfa] 1 - 2 puff IH Q4 PRN 12/18/16 Docusate Sodium [Colace 100 mg Capsule] 100 mg PO BID #60 capsule 12/27/16 Ferrous Sulfate [Feosol 325 mg Tablet] 325 mg PO BID #60 tablet 12/27/16 Ibuprofen [Motrin 800 mg Tablet] 800 mg PO Q8 #60 tablet 12/27/16 Gestational Age: 36.6 Reason(s) for Admission: Induction of Labor, Group B Strep Positive Procedures: NST Intrapartum Procedure(s): Spontaneous Vaginal Delivery, Breech Extraction-Total Intrapartum Procedure Note: twins Complication(s): Laceration-Vaginal - [place] Data Baby 1 Female at 1 minute: 8 at 5 minutes: 9 Weight: 2685 kg Home with Mother: Yes - unsure about d/c home yet Complications: No Baby 2 Female at 1 minute: 4 at 5 minutes: 8 Weight: 2595 kg Home with Mother: Yes Complications: Yes - broken arm, breech ? dc with mom - Diagnosis Test Laboratory: Temp Pulse Resp BP Pulse Ox 97.7 F 65 17 121/79 100 12/27/16 07:30 12/27/16 07:30 12/27/16 07:30 12/27/16 07:30 12/27/16 07:30 12/25/16 12/25/16 12/26/16 08:30 09: 07:03 RBC 3.68 L 3.42 L Hgb 9.9 L 8.9 L Hct 30.1 L 27.6 L Urine Opiates Screen NEGATIVE - Discharge information/Instructions Discharge Activity: Activity As Tolerated, Balance Activity w/Rest, Pelvic Rest , No tub bath Discharge Diet: Regular Disposition: HOME, SELF-CARE Follow up with: [facility] in: 1, Weeks - d/c dependant on psych recommendations.
[2016-12-27] MEDS: DOCUSATE SODIUM 100 MG CAPSULE PO SCH ×2 (09:54→18:32)
[2016-12-27] MEDS: FERROUS SULFATE 325 MG TABLET PO SCH ×2 (09:54→18:32)
[2016-12-27] MEDS: PRENATAL VITAMIN W-O CA NO5/FE FUMARATE/FA CAPSULE PO SCH (09:54)
[2016-12-27] MEDS: SENNOSIDES/DOCUSATE 8.6-50 MG 1 EACH TABLET PO SCH (09:54)
[2016-12-27] MEDS: FAMOTIDINE 20 MG TABLET PO SCH ×2 (13:16→22:15)
[2016-12-28] MEDS: IBUPROFEN 800 MG TABLET PO SCH ×2 (05:43→13:52)
--- NOTE | 2016-12-28 07:16 | PSYCHOLOGICAL NOTE ---
Psych Note - Psych Note Psych Note: 12/25/2016 Clinician received phone call requesting psychological evaluation for patient. Patient was being induced at this time with twins; it was requested that behavior health team receive phone call after delivery and patient can participate in evaluation. 12/26/2016 Clinician notes no phone call was received to see patient at this time (time is 6 PM). 12/27/2016 Clinician conducted evaluation. Patient spoke with clinician with her mother, her two best friends and their child, the attending nurse and the patient's twins at bedside. Patient stated everyone in the room knew everything and stated they could stay. Patient is diagnosed with bipolar and previously to was taking lithium. Patient reports she did not like the effect of lithium on her; stating it made her mean. Patient states she would like to breast feed and is wondering what medication she could take for her bipolar. Clinician conducted psychoeducation. Additionally, patient's significant other reported abandoned the patient and his twins. Patient states he said he was leaving to get something and would be back. When the patient called to see where he was he stated he was driving back to [place]. Patient reached out to her mother and friends. Patient contacted her significant other's command to notify them of the situation. Patient and mother disclose the current plan is to move to [place] with the patient's mother once the patient is cleared from her doctors at her aftercare appointment. Patient stated she already has gotten all the information in transferring Medicaid from [place] to [place]. Patient states she is surprisingly handing everything well because she has been more focused on the babies. Patient is alert and orientated to person, place, time and circumstance. Mood is euthymic with congruent affect. Patient denies suicidal/ homicidal ideation. Patient denies auditory and visual hallucinations; patient is not demonstrating and behaviours congruent to responding to internal stimuli. No delusions are noted. Thought process is organized and linear. eye contact was well maintained. intellectual abilities appear to be average range. attention and concentration are fair. insight, judgement and impulse control appear to be historically poor (evidenced by patient's self report and reportedly being to someone else currently that is not the father of the twins that just reportedly abandoned them) however currently patient is demonstrating good insight and judgement with making future plans. Bipolar per history provided by patient and patient's mother. Impression/Plan: Patient is considered psychologically cleared for discharge. Patient does not meet IVC criteria per [place] GS 122C. Patient demonstrated positive coping skills, use of strong support system, and proactive planing. Patient verbalized wanting to breast feed; however, patient's mental health needs which includes the need of a mood stabilized will make this difficult. At this time, the behavioral health team as no recommendations for medications; all mood stabilized would be passed during feedings. Dr. Guerra was consulted on the care and management of this patient.
--- NOTE | 2016-12-28 08:58 | PDOC DISCHARGE SUMMARY ---
Final Diagnosis Discharge Date: 12/28/16 - Final Diagnosis (1) Vaginal delivery Is this a current diagnosis for this admission?: Yes (2) Acute blood loss anemia Is this a current diagnosis for this admission?: Yes (3) Bipolar 1 disorder Is this a current diagnosis for this admission?: Yes Discharge Data - Discharge Medication Home Medications: Vit/Iron Fumarate/FA [ Tablet] 1 tab PO DAILY 12/05/16 Albuterol Sulfate [Ventolin Hfa] 1 - 2 puff IH Q4 PRN 12/18/16 Docusate Sodium [Colace 100 mg Capsule] 100 mg PO BID #60 capsule 12/27/16 Ferrous Sulfate [Feosol 325 mg Tablet] 325 mg PO BID #60 tablet 12/27/16 Ibuprofen [Motrin 800 mg Tablet] 800 mg PO Q8 #60 tablet 12/27/16 Gestational Age: 36.6 Reason(s) for Admission: Induction of Labor, Group B Strep Positive Admission Note: twins iol per recommendations of [facility] Procedures: NST Intrapartum Procedure(s): Spontaneous Vaginal Delivery, Breech Extraction-Total Intrapartum Procedure Note: twin a , twin b breech Complication(s): Laceration-Vaginal Laceration-Degree: 1st - Data Baby 1 Female at 1 minute: 8 at 5 minutes: 9 Weight: 2685 kg Home with Mother: Yes Complications: No Baby 2 Female at 1 minute: 4 at 5 minutes: 8 Weight: 2595 kg Home with Mother: Yes Complications: Yes - breech - Diagnosis Test Laboratory: Temp Pulse Resp BP Pulse Ox 98.2 F 95 16 124/65 95 12/28/16 08:12 12/28/16 08:12 12/28/16 08:12 12/28/16 08:12 12/28/16 08:12 12/25/16 12/25/16 12/26/16 08:30 09: 07:03 RBC 3.68 L 3.42 L Hgb 9.9 L 8.9 L Hct 30.1 L 27.6 L Urine Opiates Screen NEGATIVE - Discharge information/Instructions Discharge Activity: Activity As Tolerated, Balance Activity w/Rest, Pelvic Rest , No tub bath Discharge Diet: Regular - [facility] Disposition: HOME, SELF-CARE Follow up with: [facility] in: 1, Weeks - d/c dependant on psych recommendations.
[2016-12-28] MEDS: DOCUSATE SODIUM 100 MG CAPSULE PO SCH (09:11)
[2016-12-28] MEDS: SENNOSIDES/DOCUSATE 8.6-50 MG 1 EACH TABLET PO SCH (09:12)
[2016-12-28] MEDS: FAMOTIDINE 20 MG TABLET PO SCH (09:12)
[2016-12-28] MEDS: PRENATAL VITAMIN W-O CA NO5/FE FUMARATE/FA CAPSULE PO SCH (09:12)
[2016-12-28] MEDS: FERROUS SULFATE 325 MG TABLET PO SCH (09:12)
[2016-12-28 09:42] VITALS: BP 116/75
== END 2016-12-28 14:42 | disposition home or self-care (01) | DRG 775 ==
LOC: LR 08:25 → 2S 12-26 03:04
PROVIDERS: ADMIT Student in an Organized Health Care Education/Training Program; ATTEND Specialist
PROC: 10E0XZZ Delivery of Products of Conception, External Approach (ICD-10-PCS; principal; 2016-12-25)
PROC: 0HQ9XZZ Repair Perineum Skin, External Approach (ICD-10-PCS; 2016-12-25)
PROC: 4A1HXCZ Monitoring of Products of Conception, Cardiac Rate, External Approach (ICD-10-PCS; 2016-12-25)
PROC: 3E0234Z Introduction of Serum, Toxoid and Vaccine into Muscle, Percutaneous Approach (ICD-10-PCS; 2016-12-27)
DX: O64.8XX2 Obstructed labor due to other malposition and malpresentation, fetus 2 (principal); O41.03X0 Oligohydramnios, third trimester, not applicable or unspecified; D62 Acute posthemorrhagic anemia; O30.043 Twin pregnancy, dichorionic/diamniotic, third trimester; O24.425 Gestational diabetes mellitus in childbirth, controlled by oral hypoglycemic drugs; O99.824 Streptococcus B carrier state complicating childbirth; O99.344 Other mental disorders complicating childbirth; F31.9 Bipolar disorder, unspecified; O26.893 Other specified pregnancy related conditions, third trimester; O99.02 Anemia complicating childbirth; Z67.11 Type A blood, Rh negative; Z37.2 Twins, both liveborn; Z3A.36 36 weeks gestation of pregnancy; Z62.810 Personal history of physical and sexual abuse in childhood; Z88.0 Allergy status to penicillin
CPT/HCPCS: 36415; 80307; 81005; 82962; 85025; 85027; 85461; 86592; 86850; 86900; 86901; 88307; 99465; J2370; J2590; J2790; J3010; J3370; J3490

== ENCOUNTER 2017-03-16 12:23 | Emergency (ER) | payer MEDICAID ==
--- NOTE | 2017-03-16 13:24 | ER Document Report ---
ED General - General Chief Complaint: Sore Throat Stated Complaint: URINARY PROBLEM Time Seen by Provider: 03/16/17 13:08 Mode of Arrival: Ambulatory Information source: Patient Notes: 22-year-old female presents with complaints of sore throat urinary symptoms patient denies any fevers or chills admits to burning on urination TRAVEL OUTSIDE OF THE [place] IN LAST 30 DAYS: No - HPI Onset: Other Onset/Duration: Persistent Quality of pain: Cramping Severity: Mild Pain Level: 1 Associated symptoms: Other Exacerbated by: Denies Relieved by: Denies Similar symptoms previously: No Recently seen / treated by doctor: No - Related Data Allergies/Adverse Reactions: doxycycline [Doxycycline] Allergy (Verified 03/16/17 12:46) Hives penicillin G Allergy (Verified 03/16/17 12:46) Penicillins Allergy (Verified 03/16/17 12:46) Hives Past Medical History - Social History Smoking Status: Never Smoker Cigarette use (# per day): No Chew tobacco use (# tins/day): No Smoking Education Provided: No Family History: Reviewed & Not Pertinent Patient has suicidal ideation: No Pulmonary Medical History: Reports: Hx Asthma Neurological Medical History: Reports: Hx Migraine Renal/ Medical History: Denies: Hx Peritoneal Dialysis Musculoskeltal Medical History: Reports Hx Musculoskeletal Trauma - Toxic Psychiatric Medical History: Reports: Hx Anxiety, Hx Depression - Immunizations Immunizations up to date: Yes Hx Diphtheria, Pertussis, Tetanus Vaccination: No Review of Systems - Review of Systems Notes: REVIEW OF SYSTEMS: CONSTITUTIONAL : Denies fever, chills, or sweats. Denies recent illness. EENT: Admits to sore throat CARDIOVASCULAR: Denies chest pain. Denies palpitations or racing or irregular heart beat. Denies ankle edema. RESPIRATORY: Denies cough, cold, or chest congestion. Denies shortness of breath, difficulty breathing, or wheezing. GASTROINTESTINAL: Denies abdominal pain or distention. Denies nausea, vomiting , or diarrhea. Denies blood in vomitus, stools, or per rectum. Denies black, tarry stools. Denies constipation. GENITOURINARY: Admits to burning with urination FEMALE GENITOURINARY: Denies vaginal bleeding, heavy or abnormal periods, irregular periods. Denies vaginal discharge or odor. MUSCULOSKELETAL: Denies back or neck pain or stiffness. Denies joint pain or swelling. SKIN: Denies rash, lesions or sores. HEMATOLOGIC : Denies easy bruising or bleeding. LYMPHATIC: Denies swollen, enlarged glands. NEUROLOGICAL: Denies confusion or altered mental status. Denies passing out or loss of consciousness. Denies dizziness or lightheadedness. Denies headache. Denies weakness or paralysis or loss of use of either side. Denies problems with gait or speech. Denies sensory loss, numbness, or tingling. Denies seizures. PSYCHIATRIC: Denies anxiety or stress. Denies depression, suicidal ideation, or homicidal ideation. ALL OTHER SYSTEMS REVIEWED AND NEGATIVE. PHYSICAL EXAMINATION: GENERAL: Well-appearing, well-nourished and in no acute distress. HEAD: Atraumatic, normocephalic. EYES: Pupils equal round and reactive to light, extraocular movements intact, conjunctiva are normal. ENT: Nares patent, oropharynx clear without exudates. Moist mucous membranes. NECK: Normal range of motion, supple without lymphadenopathy LUNGS: Breath sounds clear to auscultation bilaterally and equal. No wheezes rales or rhonchi. HEART: Regular rate and rhythm without murmurs ABDOMEN: Soft, nontender, nondistended abdomen. No guarding, no rebound. No masses appreciated. Female : deferred Musculoskeletal: Normal range of motion, no pitting or edema. No cyanosis. NEUROLOGICAL: Cranial nerves grossly intact. Normal speech, normal gait. Normal sensory, motor exams PSYCH: Normal mood, normal affect. SKIN: Warm, Dry, normal turgor, no rashes or lesions noted. Dictation was performed using [employer] voice recognition software Physical Exam - Vital signs Vitals: Temp Pulse Resp BP Pulse Ox 98.0 F 79 18 135/69 H 99 03/16/17 12:46 03/16/17 12:46 03/16/17 12:46 03/16/17 12:46 03/16/17 12:46 Course - Re-evaluation Re-evalutation: 03/16/17 20:58 Physical examination noted no significant abnormality , ua does not small leuk esterase, overall looks well is in no distress, will given antibtiocs for possible UTI given her symptoms 03/16/17 21:12 After performing a Medical Screening Examination, I estimate there is LOW risk for ACUTE APPENDICITIS, BOWEL OBSTRUCTION, ACUTE CHOLECYSTITIS, PERFORATED DIVERTICULITIS, INCARCERATED HERNIA, PANCREATITIS, PELVIC INFLAMMATORY DISEASE, PERFORATED ULCER, ECTOPIC , or TUBO-OVARIAN ABSCESS, thus I consider the discharge disposition reasonable. Also, there is no evidence or peritonitis , sepsis, or toxicity. I have reevaluated this patient multiple times and no significant life threatening changes are noted. The patient and I have discussed the diagnosis and risks, and we agree with discharging home with close follow-up with the understanding that symptoms and presentations can change. We also discussed returning to the Emergency Department immediately if new or worsening symptoms occur. We have discussed the symptoms which are most concerning (e.g., bloody stool, fever, changing or worsening pain, vomiting) that necessitate immediate return. - Vital Signs Vital signs: Temp Pulse Resp BP Pulse Ox 98.1 F 69 16 130/70 H 100 03/16/17 15:26 03/16/17 15:26 03/16/17 15:26 03/16/17 15:26 03/16/17 15:26 - Laboratory Laboratory results interpreted by me: 03/16/17 13:45 Urine Blood SMALL H Ur Leukocyte Esterase SMALL H Discharge - Discharge Clinical Impression: Viral URI, Sore throat UTI (urinary tract infection) Qualifiers: Urinary tract infection type: acute cystitis Hematuria presence: without hematuria Qualified Code(s): N30.00 - Acute cystitis without hematuria Condition: Stable Disposition: HOME, SELF-CARE Prescriptions: Cephalexin Monohydrate [Keflex 500 mg Capsule] 500 mg PO BID 5 Days capsule Referrals: ARLENE CORNELIUS DO [Primary Care Provider] - Follow up in 3-5 days
[2017-03-16 14:37] LABS: APPEARANCE,URINE SLIGHTLY-CLOUDY; BILIRUBIN,URINE NEGATIVE (NEGATIVE); GLUCOSE, URINE NEGATIVE (NEGATIVE); KETONES,URINE NEGATIVE (NEGATIVE); LEUKOCYTE ESTERASE,URINE SMALL (NEGATIVE); NITRITE,URINE NEGATIVE (NEGATIVE); PROTEIN,URINE NEGATIVE (NEGATIVE); URINE SPECIFIC GRAVITY 1.019; UROBILINOGEN,URINE NEGATIVE mg/dL (<2.0)
[2017-03-16 15:33] VITALS: BP 130/70
== END 2017-03-16 15:26 | disposition home or self-care (01) ==
LOC: ER 12:23
DX: J02.8 Acute pharyngitis due to other specified organisms (principal); B97.89 Other viral agents as the cause of diseases classified elsewhere; N30.00 Acute cystitis without hematuria; J45.909 Unspecified asthma, uncomplicated; Z88.1 Allergy status to other antibiotic agents; Z88.0 Allergy status to penicillin
CPT/HCPCS: 81001; 81025; 87070; 87804; 87880; 99283

== ENCOUNTER 2017-05-26 17:42 | Emergency (ER) | payer MEDICAID ==
[2017-05-26 17:47] VITALS: BP 124/69
--- NOTE | 2017-05-26 17:57 | ER Document Report ---
ED Medical Screen (RME) - General Chief Complaint: Vaginal Bleeding Stated Complaint: VAGINAL BLEEDING Time Seen by Provider: 05/26/17 17:56 Notes: Patient states she gave approximately 5 months ago. She states for the last 2 months she has had vaginal bleeding with lower abdominal cramping. She states she does not have a physician to follow-up with. TRAVEL OUTSIDE OF THE [place] IN LAST 30 DAYS: No - Related Data Allergies/Adverse Reactions: doxycycline [Doxycycline] Allergy (Verified 05/26/17 17:44) Hives penicillin G Allergy (Verified 05/26/17 17:44) Penicillins Allergy (Verified 05/26/17 17:44) Hives Past Medical History - Social History Chew tobacco use (# tins/day): No Frequency of alcohol use: Occasional Drug Abuse: None Pulmonary Medical History: Reports: Hx Asthma Neurological Medical History: Reports: Hx Migraine Renal/ Medical History: Denies: Hx Peritoneal Dialysis Musculoskeltal Medical History: Reports Hx Musculoskeletal Trauma - Toxic Psychiatric Medical History: Reports: Hx Anxiety, Hx Depression Past Surgical History: Denies: Hx Abdominal Surgery - Immunizations Immunizations up to date: Yes Hx Diphtheria, Pertussis, Tetanus Vaccination: No Physical Exam - Vital signs Vitals: Temp Pulse Resp BP Pulse Ox 98.6 F 84 16 124/69 98 05/26/17 17:44 05/26/17 17:44 05/26/17 17:44 05/26/17 17:44 05/26/17 17:44 Course - Vital Signs Vital signs: Temp Pulse Resp BP Pulse Ox 98.6 F 84 16 124/69 98 05/26/17 17:44 05/26/17 17:44 05/26/17 17:44 05/26/17 17:44 05/26/17 17:44
[2017-05-26 18:33] LABS: ABSOLUTE EOSINOPHILS # (AUTO) 0.2 10^3/uL (0.0-0.6); ABSOLUTE LYMPHOCYTES (AUTO) 3.1 10^3/uL (0.5-4.7); ABSOLUTE MONOCYTES (AUTO) 0.7 10^3/uL (0.1-1.4); ABSOLUTE NEUT (AUTO) 4.9 10^3/uL (1.7-8.2); BASOPHILS % (AUTO) 0.1 % (0-2); EOSINOPHILS % (AUTO) 1.8 % (0-6); HEMATOCRIT 38.1 % (36.0-47.0); HEMOGLOBIN 13.1 g/dL (12.0-15.5); HGB HCT DIFFERENCE 1.2; LYMPHOCYTES % (AUTO) 34.8 % (13-45); MEAN CORPUSCULAR HEMOGLOBIN 28.4 pg (27.0-33.4); MEAN CORPUSCULAR HGB CONC 34.4 g/dL (32.0-36.0); MEAN CORPUSCULAR VOLUME 83 fl (80-97); MONOCYTES % (AUTO) 7.6 % (3-13); RED BLOOD COUNT 4.61 10^6/uL (3.72-5.28); RED CELL DISTRIBUTION WIDTH 14.7 % (11.5-14.0); SEGMENTED NEUTROPHILS % (AUTO) 55.7 % (42-78); WHITE BLOOD COUNT 8.8 10^3/uL (4.0-10.5)
[2017-05-26 18:45] LABS: APPEARANCE,URINE CLEAR; BILIRUBIN,URINE NEGATIVE (NEGATIVE); GLUCOSE, URINE NEGATIVE (NEGATIVE); KETONES,URINE NEGATIVE (NEGATIVE); LEUKOCYTE ESTERASE,URINE TRACE (NEGATIVE); NITRITE,URINE NEGATIVE (NEGATIVE); PROTEIN,URINE NEGATIVE (NEGATIVE); UROBILINOGEN,URINE NEGATIVE mg/dL (<2.0)
--- NOTE | 2017-05-26 18:47 | ER Document Report ---
HPI - HPI Pain Level: 3 Notes: Patient is a 22-year-old female who presents the ED complaining of intermittent vaginal bleeding over the last 2 months that has not been regular for her. Patient states that there are days where she has to use a tampon and other days where she does not have to use 1 and will just notice a scant amount on the tissue when she wipes. Patient states that she will have intermittent cramping , but has not had that in the last couple days. Patient states that she gave to twins naturally 5 months ago, and did not warrant any surgical procedure. She denies any other pelvic medical history. Patient states that she is not breast-feeding. Patient was previously evaluated by the [facility]. Patient states that she is seeing a new PCM cannot wait for the referral. Patient is otherwise eating and drinking without any difficulties. She is urinating normally and having normal bowel movements. Denies any vaginal discharge aside from blood. Denies any headache, fever, URI, sore throat, chest pain, palpitations, syncope, cough, shortness of breath, wheeze, dyspnea, abdominal pain, nausea/vomiting/diarrhea, urinary retention, dysuria, hematuria, or rash. Pt did get the depo shot in january and was due again in Apr but did not get her 2nd shot and does not want that (i.e. wants the implant). - ROS Notes: REVIEW OF SYSTEMS: CONSTITUTIONAL : Denies fever, chills, or sweats. Denies recent illness. EENT: Denies eye, ear, throat, or mouth pain or symptoms. Denies nasal or sinus congestion or discharge. Denies throat, tongue, or mouth swelling or difficulty swallowing. CARDIOVASCULAR: Denies chest pain. Denies palpitations or racing or irregular heart beat. Denies ankle edema. RESPIRATORY: Denies cough, cold, or chest congestion. Denies shortness of breath, difficulty breathing, or wheezing. GASTROINTESTINAL: Denies abdominal pain or distention. Denies nausea, vomiting , or diarrhea. GENITOURINARY: Denies difficulty urinating, painful urination, burning, frequency, blood in urine, or discharge. FEMALE GENITOURINARY: see hpi MUSCULOSKELETAL: Denies back or neck pain or stiffness. Denies joint pain or swelling. SKIN: Denies rash, lesions or sores. NEUROLOGICAL: Denies confusion or altered mental status. Denies passing out or loss of consciousness. Denies dizziness or lightheadedness. Denies headache. Denies weakness or paralysis or loss of use of either side. Denies problems with gait or speech. Denies sensory loss, numbness, or tingling. ALL OTHER SYSTEMS REVIEWED AND NEGATIVE. Dictation was performed using [employer] voice recognition software - REPRODUCTIVE Reproductive: REPORTS: : Past Medical History - Social History Smoking Status: Unknown if Ever Smoked Chew tobacco use (# tins/day): No Frequency of alcohol use: Occasional Drug Abuse: None Family History: Reviewed & Not Pertinent Patient has suicidal ideation: No Patient has homicidal ideation: No Pulmonary Medical History: Reports: Hx Asthma Neurological Medical History: Reports: Hx Migraine Renal/ Medical History: Denies: Hx Peritoneal Dialysis Musculoskeltal Medical History: Reports Hx Musculoskeletal Trauma - Toxic Psychiatric Medical History: Reports: Hx Anxiety, Hx Depression Past Surgical History: Denies: Hx Abdominal Surgery - Immunizations Immunizations up to date: Yes Hx Diphtheria, Pertussis, Tetanus Vaccination: No Vertical Provider Document - CONSTITUTIONAL Agree With Documented VS: Yes Notes: PHYSICAL EXAMINATION: GENERAL: Well-appearing, well-nourished and in no acute distress. LUNGS: Breath sounds clear to auscultation bilaterally and equal. No wheezes rales or rhonchi. HEART: Regular rate and rhythm without murmurs, rubs, gallops. ABDOMEN: Soft, nontender, nondistended abdomen. No guarding, no rebound. No masses appreciated. Normal bowel sounds present. No CVA tenderness bilaterally. Musculoskeletal: FROM to passive/active. Strength 5+/5. Extremities: No cyanosis, clubbing, or edema b/l. Peripheral pulses 2+. Capillary refill less than 3 seconds. NEUROLOGICAL: Normal speech, normal gait. Normal sensory, motor exams PSYCH: Normal mood, normal affect. SKIN: Warm, Dry, normal turgor, no rashes or lesions noted. - INFECTION CONTROL TRAVEL OUTSIDE OF THE [place] IN LAST 30 DAYS: No - RESPIRATORY O2 Sat by Pulse Oximetry: 98 Course - Re-evaluation Re-evalutation: 05/26/17 18:55 Patient is an afebrile, well-hydrated, 22-year-old female who presents ED with dysfunctional uterine bleeding. Vitals are stable. PE is otherwise unremarkable. CBC was unremarkable along with the CMP and urinalysis. was negative. Patient does not have any previous history of DVT or PE. Pt states that she is past due by 2 weeks for her next depo injection (pt does not want another one and wants to go to implant). Conservative measures for symptoms with close monitoring. No other imaging or lab work warranted at this time. Low suspicion/risk for acute appendicitis, bowel obstruction, acute cholecystitis, acute cholangitis, perforated diverticulitis, incarcerated hernia , pancreatitis, perforated ulcer, peritonitis, sepsis, pelvic inflammatory disease, ectopic , tubo-ovarian abscess, ovarian torsion, or other systemic emergent condition at this time. Patient is aware that her condition can change from initial presentation and she needs to monitor symptoms closely and seek medical attention if any acute changes. Conservative measures otherwise for symptoms. Recheck with OBGYN in 3-5 days. Recheck with your PCM in 3-5 days. Return to the ED with any worsening/concerning symptoms otherwise as reviewed in discharge. Patient is in agreement. - Vital Signs Vital signs: Temp Pulse Resp BP Pulse Ox 98.6 F 84 16 124/69 98 05/26/17 17:44 05/26/17 17:44 05/26/17 17:44 05/26/17 17:44 05/26/17 17:44 - Laboratory Result Diagrams: 05/26/17 18:00 05/26/17 18:00 Discharge - Discharge Clinical Impression: Dysfunctional uterine bleeding Condition: Stable Disposition: HOME, SELF-CARE Instructions: Dysfunctional Uterine Bleeding ([facility]), Provera ([facility]) Additional Instructions: Maintain adequate fluid intake Take medications as directed Monitor symptoms Recheck with PCM in 3-5 days Recheck with OBGYN in 3-5 days Return to the ED with any worsening symptoms and/or development of fever, headache, chest pain, palpitations, syncope, shortness of breath, trouble breathing, abdominal pain, n/v/d, blood in stool/urine, or other worsening symptoms that are concerning to you. Referrals: [facility] [Provider Group] - Follow up in 3-5 days
[2017-05-26 18:52] LABS: ALANINE AMINOTRANSFERASE 32 U/L (9-52); ALBUMIN 4.8 g/dL (3.5-5.0); ALKALINE PHOSPHATASE 70 U/L (38-126); ANION GAP 14 (5-19); ASPARTATE AMINO TRANSFERASE 19 U/L (14-36); BILIRUBIN,DIRECT 0.3 mg/dL (0.0-0.4); BILIRUBIN,TOTAL 0.6 mg/dL (0.2-1.3); BLOOD UREA NITROGEN 13 mg/dL (7-20); CALCIUM 9.7 mg/dL (8.4-10.2); CARBON DIOXIDE 24 mmol/L (22-30); CHLORIDE 104 mmol/L (98-107); CREATININE RESULT 0.75 mg/dL (0.52-1.25); GLUCOSE 92 mg/dL (75-110); POTASSIUM 4.3 mmol/L (3.6-5.0); TOTAL PROTEIN 7.7 g/dL (6.3-8.2)
== END 2017-05-26 19:16 | disposition home or self-care (01) ==
LOC: ER 17:42
DX: N93.8 Other specified abnormal uterine and vaginal bleeding (principal); J45.909 Unspecified asthma, uncomplicated
CPT/HCPCS: 36415; 80053; 81001; 81025; 85025; 99284

== ENCOUNTER 2017-06-27 04:07 | Emergency (ER) | payer MEDICAID ==
[2017-06-27 04:13] VITALS: BP 134/85
[2017-06-27] MEDS ORDERED: ACETAMINOPHEN 325 MG TABLET PO ONE (04:47)
--- NOTE | 2017-06-27 04:47 | ER Document Report ---
ED Flu Like - General Chief Complaint: Cold Symptoms Stated Complaint: FEVER Time Seen by Provider: 06/27/17 04:33 Notes: The patient is a 22-year-old female, current smoker, presents with 3 days of body aches, fever up to 101 and productive cough. Her 6-month-old twins had bronchiolitis last week. Patient denies chest pain, shortness of breath, nausea , vomiting, abdominal pain, recent travel, hemoptysis, diarrhea or constipation. TRAVEL OUTSIDE OF THE [place] IN LAST 30 DAYS: No - Related Data Allergies/Adverse Reactions: doxycycline [Doxycycline] Allergy (Verified 05/26/17 17:44) Hives penicillin G Allergy (Verified 05/26/17 17:44) Penicillins Allergy (Verified 05/26/17 17:44) Hives Past Medical History - General Information source: Patient - Social History Smoking Status: Current Every Day Smoker Family History: Reviewed & Not Pertinent Patient has suicidal ideation: No Patient has homicidal ideation: No Pulmonary Medical History: Reports: Hx Asthma Neurological Medical History: Reports: Hx Migraine Renal/ Medical History: Denies: Hx Peritoneal Dialysis Musculoskeltal Medical History: Reports Hx Musculoskeletal Trauma - Toxic Psychiatric Medical History: Reports: Hx Anxiety, Hx Depression Past Surgical History: Denies: Hx Abdominal Surgery - Immunizations Immunizations up to date: Yes Hx Diphtheria, Pertussis, Tetanus Vaccination: No Review of Systems - Review of Systems Notes: REVIEW OF SYSTEMS: CONSTITUTIONAL: +fevers, +chills EENT: -eye pain, -difficulty swallowing, -nasal congestion CARDIOVASCULAR:-chest pain, -syncope. RESPIRATORY: +cough, -SOB GASTROINTESTINAL: -abdominal pain, - nausea, -vomiting, -diarrhea GENITOURINARY: -dysuria, -hematuria MUSCULOSKELETAL: -back pain, -neck pain SKIN: -rash or skin lesions. HEMATOLOGIC: -easy bruising or bleeding. LYMPHATIC: -swollen, enlarged glands. NEUROLOGICAL: -altered mental status or loss of consciousness, -headache, - neurologic symptoms PSYCHIATRIC: -anxiety, -depression. ALL OTHER SYSTEMS REVIEWED AND NEGATIVE. Physical Exam - Vital signs Vitals: Temp Pulse Resp BP Pulse Ox 98.6 F 109 H 17 134/85 H 98 06/27/17 04:12 06/27/17 04:12 06/27/17 04:12 06/27/17 04:12 06/27/17 04:12 - Notes Notes: PHYSICAL EXAMINATION: GENERAL: Well-appearing, well-nourished and in no acute distress. HEAD: Atraumatic, normocephalic. EYES: Pupils equal round and reactive to light, extraocular movements intact, sclera anicteric, conjunctiva are normal. ENT: nares patent, oropharynx clear without exudates. Moist mucous membranes. NECK: Normal range of motion, supple without lymphadenopathy LUNGS: Breath sounds clear to auscultation bilaterally and equal. No wheezes rales or rhonchi. HEART: Mild tachycardia. ABDOMEN: Soft, nontender, normoactive bowel sounds. No guarding, no rebound. No masses appreciated. EXTREMITIES: Normal range of motion, no pitting or edema. No cyanosis. NEUROLOGICAL: Cranial nerves grossly intact. Normal speech, normal gait. Normal sensory and motor exams. PSYCH: Normal mood, normal affect. SKIN: Warm, Dry, normal turgor, no rashes or lesions noted. Course - Re-evaluation Re-evalutation: Patient appears well. No focal infiltrates on her chest x-ray that was performed due to the productive cough. Influenza tests are negative and she is not . She has symptoms of a viral illness and instructed her about symptomatic treatment. She understands. - Vital Signs Vital signs: Temp Pulse Resp BP Pulse Ox 98.6 F 109 H 17 134/85 H 98 06/27/17 04:12 06/27/17 04:12 06/27/17 04:12 06/27/17 04:12 06/27/17 04:12 - Diagnostic Test Radiology reviewed: Image reviewed, Reports reviewed Radiology results interpreted by me: CXR: NAD Discharge - Discharge Clinical Impression: Viral respiratory illness Condition: Stable Disposition: HOME, SELF-CARE Additional Instructions: Viral Syndrome The physician has diagnosed a viral infection. Viruses not only cause "colds," but can cause many different symptoms including generalized aching, fever, headache, cough, diarrhea, nausea, vomiting, and fatigue. The treatment, for the most part, is simply relief of symptoms. This means that antibiotics are usually not given. Rest, fluids, pain medications and, occasionally, medication for the specific symptoms that are most bothersome will be prescribed. Use good handwashing to avoid passing the virus to others. Shared toys should be cleaned with disinfectant. Clean the toilets, sinks, and counter surfaces in bathrooms. Launder clothing in hot water. Contact the physician if you develop any new or unusual symptoms such as severe headache, stiff neck, high fever, chest pain, productive cough, or shortness of breath. You should be rechecked if you don't see marked improvement within seven to 10 days. Prescriptions: Benzonatate [Tessalon Perle 100 mg Capsule] 100 mg PO Q8HP PRN #14 cap PRN Reason: Forms: Elevated Blood Pressure, Smoking Cessation Education Referrals: [facility] [Outside] - Follow up as needed
--- NOTE | 2017-06-27 05:09 | RADIOLOGY REPORT (SQ) ---
EXAM DESCRIPTION: CHEST PA/LAT CLINICAL HISTORY: productive cough COMPARISON: 02/17/2015 FINDINGS: Frontal and lateral views of the chest. The cardiomediastinal silhouette has normal size and contour. No consolidation, pneumothorax, or pleural effusion. No displaced rib fractures identified. Upper abdominal soft tissues are unremarkable. IMPRESSION: 1. No acute pulmonary process identified.
[2017-06-27 05:24] LABS: A TYPE INFLUENZA AG NEGATIVE (NEGATIVE); B INFLUENZA AG NEGATIVE (NEGATIVE)
== END 2017-06-27 05:47 | disposition home or self-care (01) ==
LOC: ER 04:07
DX: J98.8 Other specified respiratory disorders (principal); B97.89 Other viral agents as the cause of diseases classified elsewhere; R50.9 Fever, unspecified; R05 Cough; R52 Pain, unspecified; J45.909 Unspecified asthma, uncomplicated; F17.200 Nicotine dependence, unspecified, uncomplicated; Z88.1 Allergy status to other antibiotic agents; Z88.0 Allergy status to penicillin
CPT/HCPCS: 99283; 81025; 87804; 71020; J3490

== ENCOUNTER 2017-11-07 11:07 | Emergency (ER) | payer MEDICAID ==
[2017-11-07] MEDS ORDERED: LIDOCAINE 2% VISCOUS SOLN 20 ML UDCUP PO ONE (11:49)
[2017-11-07] MEDS ORDERED: MAG HYDROX/AL HYDROX/SIMETH SUSP 30 ML UDCUP PO PRN ×2 (11:49→13:08)
--- NOTE | 2017-11-07 11:50 | ER Document Report ---
ED Medical Screen (RME) - General Chief Complaint: Chest Pressure Stated Complaint: CHEST PAIN Time Seen by Provider: 11/07/17 11:48 Notes: RAPID MEDICAL EVALUATION DISCLOSURE I have seen this patient as part of a Rapid Medical Evaluation and, if applicable, placed any initially appropriate orders. The patient will be seen and fully evaluated, including a full history and physical exam, by a provider ( in Main ED or Fast Track) when a room becomes available. 22-year-old female here with complaints of "all across my chest" pain, shortness of breath, lightheadedness, nausea ongoing for the past 1 month but progressively worsening. This morning she woke up with the pain. It is worse with exertion and eating foods but not worse with breathing or position change. She denies any recent medication changes. She denies any history of coronary disease but has a strong family history of CAD. EXAM Clear to auscultation bilaterally Regular rate and rhythm TRAVEL OUTSIDE OF THE [place] IN LAST 30 DAYS: No - Related Data Allergies/Adverse Reactions: doxycycline [Doxycycline] Allergy (Verified 05/26/17 17:44) Hives penicillin G Allergy (Verified 05/26/17 17:44) Penicillins Allergy (Verified 05/26/17 17:44) Hives Past Medical History - Social History Chew tobacco use (# tins/day): No Frequency of alcohol use: None Drug Abuse: None Pulmonary Medical History: Reports: Hx Asthma Neurological Medical History: Reports: Hx Migraine Renal/ Medical History: Denies: Hx Peritoneal Dialysis Musculoskeltal Medical History: Reports Hx Musculoskeletal Trauma - Toxic Psychiatric Medical History: Reports: Hx Anxiety, Hx Depression Past Surgical History: Denies: Hx Abdominal Surgery - Immunizations Immunizations up to date: Yes Hx Diphtheria, Pertussis, Tetanus Vaccination: No Physical Exam - Vital signs Vitals: Temp Pulse Resp BP Pulse Ox 98.4 F 83 20 125/73 98 11/07/17 11:13 11/07/17 11:13 11/07/17 11:13 11/07/17 11:13 11/07/17 11:13 Course - Vital Signs Vital signs: Temp Pulse Resp BP Pulse Ox 98.4 F 83 20 125/73 98 11/07/17 11:13 11/07/17 11:13 11/07/17 11:13 11/07/17 11:13 11/07/17 11:13
[2017-11-07 12:35] LABS: ABSOLUTE EOSINOPHILS # (AUTO) 0.1 10^3/uL (0.0-0.6); ABSOLUTE LYMPHOCYTES (AUTO) 2.5 10^3/uL (0.5-4.7); ABSOLUTE MONOCYTES (AUTO) 0.5 10^3/uL (0.1-1.4); ABSOLUTE NEUT (AUTO) 4.4 10^3/uL (1.7-8.2); BASOPHILS % (AUTO) 0.1 % (0-2); HEMATOCRIT 38.5 % (36.0-47.0); HEMOGLOBIN 13.1 g/dL (12.0-15.5); LYMPHOCYTES % (AUTO) 33.8 % (13-45); MEAN CORPUSCULAR VOLUME 82 fl (80-97); MONOCYTES % (AUTO) 6.9 % (3-13); PLATELET COUNT 300 10^3/uL (150-450); RED BLOOD COUNT 4.68 10^6/uL (3.72-5.28); RED CELL DISTRIBUTION WIDTH 14.6 % (11.5-14.0); SEGMENTED NEUTROPHILS % (AUTO) 58.2 % (42-78); TOTAL CELLS COUNTED % (AUTO) 100 %; WHITE BLOOD COUNT 7.5 10^3/uL (4.0-10.5)
--- NOTE | 2017-11-07 12:37 | RADIOLOGY REPORT (SQ) ---
EXAM DESCRIPTION: CHEST 2 VIEWS COMPLETED DATE/TIME: 11/07/2017 12:24 pm REASON FOR STUDY: CP SOB COMPARISON: 06/27/2017 EXAM PARAMETERS: NUMBER OF VIEWS: two views TECHNIQUE: Digital Frontal and Lateral radiographic views of the chest acquired. RADIATION DOSE: NA LIMITATIONS: none FINDINGS: LUNGS AND PLEURA: No opacities, masses or pneumothorax. No pleural effusion. MEDIASTINUM AND HILAR STRUCTURES: No masses or contour abnormalities. HEART AND VASCULAR STRUCTURES: Heart normal size. No evidence for failure. BONES: No acute findings. HARDWARE: None in the chest. OTHER: No other significant finding. IMPRESSION: NO ACUTE RADIOGRAPHIC FINDING IN THE CHEST. TECHNICAL DOCUMENTATION: JOB ID: [id number] [employer]- All Rights Reserved Reading location - IP/workstation name: [email or web address]
[2017-11-07 12:53] LABS: ANION GAP 12 (5-19); BLOOD UREA NITROGEN 15 mg/dL (7-20); CALCIUM 9.8 mg/dL (8.4-10.2); CARBON DIOXIDE 27 mmol/L (22-30); CHLORIDE 106 mmol/L (98-107); GLUCOSE 94 mg/dL (75-110); PHOSPHORUS 4.1 mg/dL (2.5-4.5); POTASSIUM 4.5 mmol/L (3.6-5.0); SODIUM 144.6 mmol/L (137-145)
[2017-11-07] MEDS ORDERED: METOCLOPRAMIDE HCL ORAL SOLN 10 MG/10 ML UDCUP PO ONE (13:08)
[2017-11-07] MEDS ORDERED: FAMOTIDINE 20 MG TABLET PO ONE (13:08)
[2017-11-07] MEDS ORDERED: IBUPROFEN 800 MG TABLET PO ONE (13:09)
--- NOTE | 2017-11-07 13:10 | ER Document Report ---
ED General - General Chief Complaint: Chest Pressure Stated Complaint: CHEST PAIN Time Seen by Provider: 11/07/17 11:48 Notes: Patient is a 22-year-old female who presents emergency department the chief complaint of 4 weeks of epigastric burning and esophageal reflux. Patient states she has been having issues with heartburn ever since she had delivered her twin girls who are [id number]. States that she has been taking Tums over- the-counter without much improvement. Has not followed up with her primary care provider regarding this. She denies any associated shortness of breath, dyspnea. She admits to intermittent dizzy spells but denies any falls, LOC, syncope. TRAVEL OUTSIDE OF THE [place] IN LAST 30 DAYS: No - Related Data Allergies/Adverse Reactions: doxycycline [Doxycycline] Allergy (Verified 05/26/17 17:44) Hives penicillin G Allergy (Verified 05/26/17 17:44) Penicillins Allergy (Verified 05/26/17 17:44) Hives Past Medical History - Social History Smoking Status: Never Smoker Chew tobacco use (# tins/day): No Frequency of alcohol use: None Drug Abuse: None Family History: Reviewed & Not Pertinent Patient has suicidal ideation: No Patient has homicidal ideation: No Pulmonary Medical History: Reports: Hx Asthma Neurological Medical History: Reports: Hx Migraine Renal/ Medical History: Denies: Hx Peritoneal Dialysis Musculoskeltal Medical History: Reports Hx Musculoskeletal Trauma - Toxic Psychiatric Medical History: Reports: Hx Anxiety, Hx Depression Past Surgical History: Denies: Hx Abdominal Surgery - Immunizations Immunizations up to date: Yes Hx Diphtheria, Pertussis, Tetanus Vaccination: No Review of Systems - Review of Systems Constitutional: No symptoms reported Cardiovascular: See HPI Respiratory: No symptoms reported Gastrointestinal: See HPI Musculoskeletal: No symptoms reported Neurological/Psychological: See HPI -: Yes All other systems reviewed and negative Physical Exam - Vital signs Vitals: Temp Pulse Resp BP Pulse Ox 98.4 F 83 20 125/73 98 11/07/17 11:13 11/07/17 11:13 11/07/17 11:13 11/07/17 11:13 11/07/17 11:13 - Notes Notes: PHYSICAL EXAM GENERAL: Alert, interacts well. HEAD: Normocephalic, atraumatic. EYES: Pupils equal, round, and reactive to light. Extraocular movements intact. ENT: Oral mucosa moist, tongue midline. NECK: Full range of motion. Supple. Trachea midline. LUNGS: Clear to auscultation bilaterally, no wheezes, rales, or rhonchi. No respiratory distress. HEART: Regular rate and rhythm. No murmurs, gallops, or rubs. ABDOMEN: Soft, nondistended, nontender. No guarding, rebound, or rigidity.. Bowel sounds present in all 4 quadrants. EXTREMITIES: Moves all 4 extremities spontaneously. No edema, radial and dorsalis pedis pulses 2/4 bilaterally. No cyanosis. NEUROLOGICAL: Alert and oriented x4. Face symmetric. Extraocular motions intact. Pupils are 2 mm and equally reactive. Normal speech, normal gait. 5 out of 5 strength in both the distal and proximal upper and lower extremities bilaterally. Sensation is grossly intact throughout. PSYCH: Normal affect, normal mood. SKIN: Warm, dry, normal turgor. No rashes or lesions noted. Course - Re-evaluation Re-evalutation: 11/07/17 14:27 Patient is a 22-year-old female presents emergency department the chief complaint of epigastric burning. Had complete resolution of her symptoms after GI cocktail. Patient is very well in appearance, vitals within normal limits. Low clinical suspicion for ACS given clinical history, exam, EKG without ST elevations or depressions, and negative initial troponin. HEART score less than or equal to 3. PE also seems unlikely given clinical history, absence of tachycardia or dyspnea. Well's score of 0. CXR without evidence of pneumothorax or pneumonia. No widened mediastinum. Aortic dissection also seems unlikely given history, symmetric pulses, CXR, and vitals. At this time will discharge with return precautions and follow-up recommendations. Verbal discharge instructions given a the bedside and opportunity for questions given. Medication warnings reviewed. Patient is in agreement with this plan and has verbalized understanding of return precautions and the need for primary care follow-up in the next 24-72 hours. - Vital Signs Vital signs: Temp Pulse Resp BP Pulse Ox 97.8 F 70 16 111/62 100 11/07/17 14:41 11/07/17 14:41 11/07/17 14:41 11/07/17 14:41 11/07/17 14:41 - Laboratory Result Diagrams: 11/07/17 12:08 11/07/17 12:08 Laboratory results interpreted by me: 11/07/17 12:08 RDW 14.6 H - Diagnostic Test Radiology reviewed: Image reviewed, Reports reviewed - EKG Interpretation by Me EKG shows normal: Sinus rhythm Rate: Normal Rhythm: NSR When compared to previous EKG there are: No significant change Discharge - Discharge Clinical Impression: GERD (gastroesophageal reflux disease) Qualifiers: Esophagitis presence: with esophagitis Qualified Code(s): K21.0 - Gastro- esophageal reflux disease with esophagitis Condition: Good Disposition: HOME, SELF-CARE Instructions: Reflux Disease (GERD) ([facility]) Prescriptions: Omeprazole Magnesium [Prilosec Otc] 20 mg PO DAILY #30 tablet. Ondansetron [Zofran Odt 4 mg Tablet] 1 - 2 tab PO Q4H PRN #15 tab.rapdis PRN Reason: For Nausea/Vomiting Sucralfate [Carafate 1 gm Tablet] 1 gm PO ACHS #120 tablet Referrals: JHONNY MOBLEY MD [ACTIVE STAFF] - Follow up in 1 month
[2017-11-07 14:43] VITALS: BP 111/62
--- NOTE | 2017-11-07 15:52 | EKG REPORT ---
SEVERITY:- NORMAL ECG - SINUS RHYTHM : Confirmed by: Eze Mo MD 07-Nov-2017 15:50:42
== END 2017-11-07 14:43 | disposition home or self-care (01) ==
LOC: ER 11:07
DX: K21.0 Gastro-esophageal reflux disease with esophagitis (principal); R07.89 Other chest pain; R42 Dizziness and giddiness; J45.909 Unspecified asthma, uncomplicated; Z88.1 Allergy status to other antibiotic agents; Z88.0 Allergy status to penicillin
CPT/HCPCS: 93005; 99285; 36415; 83735; 84100; 85025; 81025; 80048; 84484; 71046; 93010; J3490 ×5

== ENCOUNTER 2017-12-17 | Emergency (ER) | payer MEDICAID ==
[2017-12-17 01:10] LABS: APPEARANCE,URINE SLIGHTLY-CLOUDY; BILIRUBIN,URINE NEGATIVE (NEGATIVE); COLOR,URINE AMBER; GLUCOSE, URINE NEGATIVE (NEGATIVE); KETONES,URINE NEGATIVE (NEGATIVE); LEUKOCYTE ESTERASE,URINE SMALL (NEGATIVE); NITRITE,URINE NEGATIVE (NEGATIVE); PROTEIN,URINE 30 mg/dL (NEGATIVE); URINE SPECIFIC GRAVITY 1.028
[2017-12-17 01:15] LABS: ABSOLUTE EOSINOPHILS # (AUTO) 0.1 10^3/uL (0.0-0.6); ABSOLUTE LYMPHOCYTES (AUTO) 3.5 10^3/uL (0.5-4.7); ABSOLUTE MONOCYTES (AUTO) 0.7 10^3/uL (0.1-1.4); ABSOLUTE NEUT (AUTO) 5.6 10^3/uL (1.7-8.2); BASOPHILS % (AUTO) 0.1 % (0-2); HEMATOCRIT 36.3 % (36.0-47.0); HEMOGLOBIN 12.4 g/dL (12.0-15.5); LYMPHOCYTES % (AUTO) 35.4 % (13-45); MEAN CORPUSCULAR HEMOGLOBIN 28.1 pg (27.0-33.4); MEAN CORPUSCULAR HGB CONC 34.3 g/dL (32.0-36.0); MEAN CORPUSCULAR VOLUME 82 fl (80-97); MONOCYTES % (AUTO) 7.2 % (3-13); PLATELET COUNT 298 10^3/uL (150-450); RED BLOOD COUNT 4.42 10^6/uL (3.72-5.28); SEGMENTED NEUTROPHILS % (AUTO) 56.3 % (42-78); TOTAL CELLS COUNTED % (AUTO) 100 %; WHITE BLOOD COUNT 9.9 10^3/uL (4.0-10.5)
[2017-12-17 01:17] LABS: ALANINE AMINOTRANSFERASE 46 U/L (9-52); ALBUMIN 4.4 g/dL (3.5-5.0); ALKALINE PHOSPHATASE 69 U/L (38-126); ANION GAP 10 (5-19); ASPARTATE AMINO TRANSFERASE 26 U/L (14-36); BILIRUBIN,DIRECT 0.3 mg/dL (0.0-0.4); BILIRUBIN,TOTAL 0.6 mg/dL (0.2-1.3); BLOOD UREA NITROGEN 10 mg/dL (7-20); CALCIUM 9.8 mg/dL (8.4-10.2); CARBON DIOXIDE 24 mmol/L (22-30); CHLORIDE 108 mmol/L (98-107); GLUCOSE 107 mg/dL (75-110); LIPASE 25.1 U/L (23-300); POTASSIUM 3.9 mmol/L (3.6-5.0); SODIUM 142.3 mmol/L (137-145); TOTAL PROTEIN 7.5 g/dL (6.3-8.2)
[2017-12-17] MEDS ORDERED: CEPHALEXIN 500 MG CAPSULE PO ONE (01:28)
--- NOTE | 2017-12-17 01:32 | ER Document Report ---
HPI - HPI Patient complains to provider of: dysuria Pain Level: 4 Context: Patient is a 22-year-old female who comes emergency department for chief complaint of dysuria and dark urine that she noticed over the past day. She admits to being outside in the sun a lot. She denies nausea vomiting, fever or chills. She denies flank pain at this time. She denies any daily medications or surgeries. She has an IUD. - REPRODUCTIVE Reproductive: REPORTS: : Past Medical History - General Information source: Patient - Social History Smoking Status: Never Smoker Frequency of alcohol use: None Drug Abuse: None Lives with: Family Family History: Reviewed & Not Pertinent Pulmonary Medical History: Reports: Hx Asthma Neurological Medical History: Reports: Hx Migraine Renal/ Medical History: Denies: Hx Peritoneal Dialysis Musculoskeltal Medical History: Reports Hx Musculoskeletal Trauma - Toxic Psychiatric Medical History: Reports: Hx Anxiety, Hx Depression Past Surgical History: Denies: Hx Abdominal Surgery - Immunizations Immunizations up to date: Yes Hx Diphtheria, Pertussis, Tetanus Vaccination: No Vertical Provider Document - CONSTITUTIONAL General Appearance: WD/WN, No Apparent Distress - INFECTION CONTROL TRAVEL OUTSIDE OF THE [place] IN LAST 30 DAYS: No - HEENT HEENT: Atraumatic, Normocephalic - NECK Neck: Normal Inspection - RESPIRATORY Respiratory: Breath Sounds Normal, No Respiratory Distress - CARDIOVASCULAR Cardiovascular: Regular Rate, Regular Rhythm - GI/ABDOMEN Gastrointestinal: Abdomen Soft, Abdomen Non-Tender - BACK Back: Normal Inspection - MUSCULOSKELETAL/EXTREMETIES Musculoskeletal/Extremeties: MAEW, FROM, Non-Tender - NEURO Level of Consciousness: Awake, Alert, Appropriate - DERM Integumentary: Warm, Dry, No Rash Course - Re-evaluation Re-evalutation: Laboratory workup performed on protocol before I saw the patient. CBC and chemistry unremarkable. No CVA tenderness, soft nontender abdomen. Patient reporting dysuria, has white blood cells and red blood cells in urine, patient will be treated for urinary tract infection. Elevated specific gravity, patient states she has been out in the sun and dehydrated, she declines IV rehydration, will perform oral rehydration. Remaining evaluation is unremarkable. Vital signs are unremarkable. Discussed treatment, follow-up, return precautions, patient states satisfaction and agreement with plan. - Vital Signs Vital signs: Temp Pulse Resp BP Pulse Ox 98.2 F 79 18 120/78 97 12/17/17 00:33 12/17/17 00:33 12/17/17 00:33 12/17/17 00:33 12/17/17 00:33 - Laboratory Result Diagrams: 12/17/17 00:50 12/17/17 00:50 Laboratory results interpreted by me: 12/17/17 12/17/17 12/17/17 00:35 00:50 00:50 RDW 15.0 H Chloride 108 H Urine Protein 30 H Urine Urobilinogen 4.0 H Ur Leukocyte Esterase SMALL H Discharge - Discharge Clinical Impression: Dysuria, Dehydration Condition: Stable Disposition: HOME, SELF-CARE Additional Instructions: Your urine indicates dehydration and a urinary infection. Take antibiotic as prescribed, continue to rehydrate. Follow-up with primary care. Return for any concerning symptoms including fever, vomiting, severe abdominal pain, or any other concerning or worsening symptoms. Prescriptions: Cephalexin Monohydrate [Keflex 500 mg Capsule] 500 mg PO BID #10 capsule Forms: Return to Work Referrals: BRETT TOSCANO DO [Primary Care Provider] - Follow up as needed
[2017-12-17 01:54] VITALS: BP 118/67
== END 2017-12-17 01:55 | disposition home or self-care (01) ==
LOC: ER
DX: R30.0 Dysuria (principal); E86.0 Dehydration; J45.909 Unspecified asthma, uncomplicated
CPT/HCPCS: 36415; 80053; 81001; 81025; 83690; 85025; 99283

== ENCOUNTER 2018-01-07 18:51 | Emergency (ER) | payer MEDICAID ==
[2018-01-07] MEDS ORDERED: ONDANSETRON 4 MG TAB.RAPDIS PO ONE (20:07)
--- NOTE | 2018-01-07 20:09 | ER Document Report ---
ED Medical Screen (RME) - General Chief Complaint: Abdominal Pain Stated Complaint: ABDOMINAL PAIN Time Seen by Provider: 01/07/18 20:01 Mode of Arrival: Ambulatory Information source: Patient Notes: 22-year-old female presents emergency department complaints of right-sided flank pain. Patient states that this is been present for the last 2 days. Patient states that initially started periumbilical and has since moved to the right flank area. She states that she has had some intermittent fever, chills, nausea. Patient denies any vomiting, diarrhea, constipation, vaginal discharge , dysuria, hematuria. Patient denies ever having pain similar to this previously. She denies any surgeries on her abdomen. I have greeted and performed a rapid initial assessment of this patient. A comprehensive ED assessment and evaluation of the patient, analysis of test results and completion of the medical decision making process will be conducted by additional ED providers. PHYSICAL EXAMINATION: GENERAL: Well-appearing, well-nourished and in no acute distress. HEAD: Atraumatic, normocephalic. EYES: Pupils equal round extraocular movements intact, conjunctiva are normal. ENT: Nares patent NECK: Normal range of motion LUNGS: No respiratory distress Musculoskeletal: Normal range of motion Abdomen: Right flank tenderness to palpation. Normal active bowel sounds. NEUROLOGICAL: Normal speech, normal gait. PSYCH: Normal mood, normal affect. SKIN: Warm, Dry, normal turgor, no rashes or lesions noted. TRAVEL OUTSIDE OF THE [place] IN LAST 30 DAYS: No - Related Data Allergies/Adverse Reactions: doxycycline [Doxycycline] Allergy (Verified 01/07/18 18:54) Hives penicillin G Allergy (Verified 01/07/18 18:54) Penicillins Allergy (Verified 01/07/18 18:54) Hives Past Medical History Pulmonary Medical History: Reports: Hx Asthma Neurological Medical History: Reports: Hx Migraine Renal/ Medical History: Denies: Hx Peritoneal Dialysis Musculoskeltal Medical History: Reports Hx Musculoskeletal Trauma - Toxic Psychiatric Medical History: Reports: Hx Anxiety, Hx Depression Past Surgical History: Denies: Hx Abdominal Surgery - Immunizations Immunizations up to date: Yes Hx Diphtheria, Pertussis, Tetanus Vaccination: No Physical Exam - Vital signs Vitals: Temp Pulse Resp BP Pulse Ox 98.0 F 84 17 126/82 H 97 01/07/18 18:59 07/12/18 18:59 01/07/18 18:59 01/07/18 18:59 01/07/18 18:59 Course - Vital Signs Vital signs: Temp Pulse Resp BP Pulse Ox 98.0 F 84 17 126/82 H 97 01/07/18 18:59 01/07/18 18:59 01/07/18 18:59 01/07/18 18:59 01/07/18 18:59 Doctor's Discharge - Discharge Referrals: MYKE MOORE MD [Primary Care Provider] - Follow up as needed
[2018-01-07] MEDS ORDERED: KETOROLAC TROMETHAMINE INJ/PF 30 MG/1 ML SDV IV ONE (20:42)
[2018-01-07 20:53] LABS: ABSOLUTE EOSINOPHILS # (AUTO) 0.1 10^3/uL (0.0-0.6); ABSOLUTE LYMPHOCYTES (AUTO) 1.6 10^3/uL (0.5-4.7); ABSOLUTE MONOCYTES (AUTO) 0.7 10^3/uL (0.1-1.4); ABSOLUTE NEUT (AUTO) 3.8 10^3/uL (1.7-8.2); BASOPHILS % (AUTO) 0.3 % (0-2); HEMOGLOBIN 13.4 g/dL (12.0-15.5); MEAN CORPUSCULAR HEMOGLOBIN 28.3 pg (27.0-33.4); MEAN CORPUSCULAR HGB CONC 34.5 g/dL (32.0-36.0); MEAN CORPUSCULAR VOLUME 82 fl (80-97); MONOCYTES % (AUTO) 11.4 % (3-13); PLATELET COUNT 271 10^3/uL (150-450); RED BLOOD COUNT 4.76 10^6/uL (3.72-5.28); RED CELL DISTRIBUTION WIDTH 14.6 % (11.5-14.0); SEGMENTED NEUTROPHILS % (AUTO) 61.3 % (42-78); TOTAL CELLS COUNTED % (AUTO) 100 %; WHITE BLOOD COUNT 6.1 10^3/uL (4.0-10.5)
[2018-01-07 20:59] LABS: APPEARANCE,URINE CLOUDY; BILIRUBIN,URINE NEGATIVE (NEGATIVE); COLOR,URINE YELLOW; GLUCOSE, URINE NEGATIVE (NEGATIVE); KETONES,URINE NEGATIVE (NEGATIVE); LEUKOCYTE ESTERASE,URINE LARGE (NEGATIVE); NITRITE,URINE NEGATIVE (NEGATIVE); PROTEIN,URINE 30 mg/dL (NEGATIVE); URINE SPECIFIC GRAVITY 1.029
[2018-01-07] MEDS ORDERED: CEFTRIAXONE INJ 1000 MG VIAL IV ONE (21:16)
[2018-01-07] MEDS ORDERED: NORMAL SALINE 1000 ML 1,000 ML IV ONE (21:16)
[2018-01-07 21:18] LABS: ALANINE AMINOTRANSFERASE 47 U/L (9-52); ALBUMIN 4.6 g/dL (3.5-5.0); ALKALINE PHOSPHATASE 80 U/L (38-126); ANION GAP 15 (5-19); ASPARTATE AMINO TRANSFERASE 26 U/L (14-36); BILIRUBIN,DIRECT 0.4 mg/dL (0.0-0.4); BILIRUBIN,TOTAL 0.6 mg/dL (0.2-1.3); BLOOD UREA NITROGEN 9 mg/dL (7-20); CALCIUM 9.6 mg/dL (8.4-10.2); CARBON DIOXIDE 27 mmol/L (22-30); CHLORIDE 103 mmol/L (98-107); GLUCOSE 83 mg/dL (75-110); LIPASE 31.9 U/L (23-300); SODIUM 144.6 mmol/L (137-145)
--- NOTE | 2018-01-07 21:18 | ER Document Report ---
ED General - General Chief Complaint: Abdominal Pain Stated Complaint: ABDOMINAL PAIN Time Seen by Provider: 01/07/18 20:01 Mode of Arrival: Ambulatory Notes: Patient is a 22-year-old female without chronic medical problems who presents with 1 day of right flank pain and 3 days of suprapubic abdominal pain. Patient states symptoms started as isolated suprapubic abdominal pain and progressively worsened to now include her right flank. The pain is described as a throbbing, aching, constant pain. Nothing improves or worsens this pain. She denies a history of similar symptoms in the past. She notes associated aches and chills has not had a recorded fever at home. No vomiting, cough, sputum production, headache or neck pain. She has not seen her general doctor regarding today's concerns. TRAVEL OUTSIDE OF THE [place] IN LAST 30 DAYS: No - Related Data Allergies/Adverse Reactions: doxycycline [Doxycycline] Allergy (Verified 01/07/18 18:54) Hives penicillin G Allergy (Verified 01/07/18 18:54) Penicillins Allergy (Verified 01/07/18 18:54) Hives Past Medical History - General Information source: Patient - Social History Smoking Status: Current Every Day Smoker Chew tobacco use (# tins/day): No Frequency of alcohol use: Social Drug Abuse: None Lives with: Spouse/Significant other Family History: Reviewed & Not Pertinent Patient has suicidal ideation: No Patient has homicidal ideation: No Pulmonary Medical History: Reports: Hx Asthma Neurological Medical History: Reports: Hx Migraine Renal/ Medical History: Denies: Hx Peritoneal Dialysis Musculoskeletal Medical History: Reports Hx Musculoskeletal Trauma - Toxic Psychiatric Medical History: Reports: Hx Anxiety, Hx Depression Past Surgical History: Denies: Hx Abdominal Surgery - Immunizations Immunizations up to date: Yes Hx Diphtheria, Pertussis, Tetanus Vaccination: No Review of Systems - Review of Systems Notes: Constitutional: Negative for fever. HENT: Negative for sore throat. Eyes: Negative for visual changes. Cardiovascular: Negative for chest pain. Respiratory: Negative for shortness of breath. Gastrointestinal: Positive for abdominal pain and flank pain Genitourinary: Negative for dysuria. Musculoskeletal: Negative for back pain. Skin: Negative for rash. Neurological: Negative for headaches, weakness or numbness. 10 point ROS negative except as marked above and in HPI. Physical Exam - Vital signs Vitals: Temp Pulse Resp BP Pulse Ox 98.0 F 84 17 126/82 H 97 01/07/18 18:59 01/07/18 18:59 01/07/18 18:59 01/07/18 18:59 01/07/18 18:59 Interpretation: Normal Notes: PHYSICAL EXAMINATION: GENERAL: Well-appearing, well-nourished and in no acute distress. HEAD: Atraumatic, normocephalic. EYES: Pupils equal round and reactive to light, extraocular movements intact, sclera anicteric, conjunctiva are normal. ENT: nares patent, oropharynx clear without exudates. Moist mucous membranes. NECK: Normal range of motion, supple without lymphadenopathy LUNGS: Breath sounds clear to auscultation bilaterally and equal. No wheezes rales or rhonchi. HEART: Regular rate and rhythm without murmurs ABDOMEN: Soft, mild suprapubic abdominal tenderness as well as right flank tenderness no other localized areas of tenderness, normoactive bowel sounds. No guarding, no rebound. No masses appreciated. EXTREMITIES: Normal range of motion, no pitting or edema. No cyanosis. NEUROLOGICAL: No focal neurological deficits. Moves all extremities spontaneously and on command. PSYCH: Normal mood, normal affect. SKIN: Warm, Dry, normal turgor, no rashes or lesions noted. Course - Re-evaluation Re-evalutation: 01/07/18 21:16 Presentation is most consistent with acute pyelonephritis. Laboratories do demonstrate a large amount of white blood cells in the urine as well as bacteria. Patient has had constitutional symptoms at home as well as a fever. CVA tenderness is present on exam. The remainder laboratories are relatively unremarkable without evidence of renal dysfunction. I do not suspect an acute appendicitis, biliary pathology, pancreatitis, intra-abdominal abscess, or tubo- ovarian abscess based on history and examination. Patient has been given a dose of IV ceftriaxone and a liter of fluids. Patient is able to tolerate oral intake without difficulty. Will be discharged home on 7 day course of cephalexin. A urine culture has been sent. At this time will discharge with return precautions and follow-up recommendations. Verbal discharge instructions given a the bedside and opportunity for questions given. Medication warnings reviewed. Patient is in agreement with this plan and has verbalized understanding of return precautions and the need for primary care follow-up in the next 24-72 hours. - Vital Signs Vital signs: Temp Pulse Resp BP Pulse Ox 98.0 F 80 17 128/83 H 98 01/07/18 22:22 01/07/18 22:22 01/07/18 22:22 01/07/18 22:22 01/07/18 22:22 - Laboratory Result Diagrams: 01/07/18 20:44 01/07/18 20:44 Laboratory results interpreted by me: 01/07/18 01/07/18 20:44 20:44 RDW 14.6 H Urine Protein 30 H Urine Blood SMALL H Urine Urobilinogen 4.0 H Ur Leukocyte Esterase LARGE H Discharge - Discharge Clinical Impression: Pyelonephritis, Right flank pain Nausea and vomiting Qualifiers: Vomiting type: unspecified Vomiting Intractability: non-intractable Qualified Code(s): R11.2 - Nausea with vomiting, unspecified Condition: Good Disposition: HOME, SELF-CARE Additional Instructions: You have been diagnosed with a condition called pyelonephritis which is an infection involving your kidneys and bladder. You have been given a dose of antibiotics here in the emergency department to help begin to treat this infection. Your also being sent home on antibiotics. Please start taking these later on today when you fill the prescription. Complete the course even if you feel better. Please return if you have persistent vomiting, pass out, have worsening pain, become unable to tolerate fluids, or have any other symptoms that are concerning to you. Please follow-up with your primary care physician in the next 24-48 hours. Prescriptions: Cephalexin Monohydrate [Keflex 500 mg Capsule] 500 mg PO Q6H 7 Days capsule Referrals: MYKE MOORE MD [Primary Care Provider] - Follow up as needed
[2018-01-07 22:23] VITALS: BP 128/83
== END 2018-01-07 22:23 | disposition home or self-care (01) ==
LOC: ER 18:51
DX: N10 Acute pyelonephritis (principal); Z88.0 Allergy status to penicillin; Z88.1 Allergy status to other antibiotic agents; F17.200 Nicotine dependence, unspecified, uncomplicated; R11.2 Nausea with vomiting, unspecified
CPT/HCPCS: 99284; 96375; 96365; 36415; 87086; 83690; 85025; 81025; 80053; 81001; S0119; J1885; J0696; J7030